=== PATIENT | female | born 1980 | race Caucasian/White ===

== ENCOUNTER 2017-10-27 20:23 | Inpatient (IN) | payer MEDICAID, OTHER ==
--- NOTE | 2017-10-27 20:50 | ED ---
General Adult HPI - General Chief complaint: Psychiatric Symptoms Stated complaint: Mental Health Time Seen by Provider: 10/27/17 20:25 Source: patient, RN notes reviewed, old records reviewed Mode of arrival: EMS Limitations: no limitations - History of Present Illness Initial comments: This is a 37-year-old female to the ER for evaluation. Patient's coming in for psychiatric evaluation per patient brought in by EMS. Patient having severe severe severe stress secondary home situation, patient is unreconcilable, crying - Related Data Home Medications Medication Instructions Recorded Confirmed HYDROcodone/APAP 5-325MG [[place] 1 tab PO Q6HR 10/27/17 10/27/17 5-325] Venlafaxine HCl [Effexor XR] 75 mg PO DAILY 10/27/17 10/27/17 Venlafaxine HCl [Effexor XR] 150 mg PO DAILY 10/27/17 10/27/17 clonazePAM [KlonoPIN] 1 mg PO TID PRN 10/27/17 10/27/17 lamoTRIgine [LaMICtal] 100 mg PO DAILY 10/27/17 10/27/17 Allergies Allergy/AdvReac Type Severity Reaction Status Date / Time No Known Allergies Allergy Verified 10/27/17 20:55 Review of Systems ROS Statement: Those systems with pertinent positive or pertinent negative responses have been documented in the HPI. ROS Other: All systems not noted in ROS Statement are negative. Past Medical History Past Medical History: Musculoskeletal Disorder, Osteoarthritis (OA) Additional Past Medical History / Comment(s): depression, anxiety History of Any Multi-Drug Resistant Organisms: None Reported Past Surgical History: Section Past Anesthesia/Blood Transfusion Reactions: No Reported Reaction Past Psychological History: Anxiety, Depression Smoking Status: Current every day smoker Past Alcohol Use History: Occasional Past Drug Use History: Prescription Drug Abuse General Exam Limitations: no limitations General appearance: alert, in no apparent distress, anxious Head exam: Present: atraumatic, normocephalic, normal inspection Eye exam: Present: normal appearance, PERRL, EOMI. Absent: scleral icterus, conjunctival injection, periorbital swelling ENT exam: Present: normal exam, mucous membranes moist Neck exam: Present: normal inspection. Absent: tenderness, meningismus, lymphadenopathy Respiratory exam: Present: normal lung sounds bilaterally. Absent: respiratory distress, wheezes, rales, rhonchi, stridor Cardiovascular Exam: Present: regular rate, normal rhythm, normal heart sounds. Absent: systolic murmur, diastolic murmur, rubs, gallop, clicks GI/Abdominal exam: Present: soft, normal bowel sounds. Absent: distended, tenderness, guarding, rebound, rigid Extremities exam: Present: normal inspection, full ROM, normal capillary refill. Absent: tenderness, pedal edema, joint swelling, calf tenderness Back exam: Present: normal inspection Neurological exam: Present: alert, oriented X3, CN II-XII intact Psychiatric exam: Present: normal affect, normal mood Skin exam: Present: warm, dry, intact, normal color. Absent: rash Course Vital Signs 10/27/17 20:28 Temperature 98.4 F Pulse Rate 100 Respiratory 20 Rate Blood Pressure 117/68 O2 Sat by Pulse 97 Oximetry - Reevaluation(s) Reevaluation #1: 10/27/17 20:50 Medically clear for psychiatric evaluation Medical Decision Making - Medical Decision Making 37 female to be admitted for psychiatric evaluation and treatment - Lab Data Lab Results 10/27/17 Range/Units 22:00 Urine Opiates Screen Detected H (NotDetected) Ur Oxycodone Screen Not Detected (NotDetected) Urine Methadone Screen Not Detected (NotDetected) Ur Propoxyphene Screen Detected H (NotDetected) Ur Barbiturates Screen Not Detected (NotDetected) U Tricyclic Antidepress Not Detected (NotDetected) Ur Phencyclidine Scrn Not Detected (NotDetected) Ur Amphetamines Screen Not Detected (NotDetected) U Methamphetamines Scrn Not Detected (NotDetected) U Benzodiazepines Scrn Detected H (NotDetected) Urine Cocaine Screen Not Detected (NotDetected) U Marijuana (THC) Screen Not Detected (NotDetected) Disposition Clinical Impression: Depression, Acute anxiety, Suicidal ideation Disposition: TRANSFER TO PSYCH HOSP/UNIT Condition: Good
[2017-10-27] MEDS ORDERED: LORazepam 1 MG TAB PO STA (21:08)
[2017-10-27] MEDS ORDERED: HYDROcodone/APAP 5-325MG 1 EACH TAB PO STA (21:08)
[2017-10-27 22:51] LABS: Amphetamine Screen,Urine Not Detected (NotDetected); Barbiturate Screen,Urine Not Detected (NotDetected); Benzodiazepines Screen,Urine Detected (NotDetected); Cocaine Screen,Urine Not Detected (NotDetected); Methadone Screen, Urine Not Detected (NotDetected); Opiate Screen,Urine Detected (NotDetected); Oxycodone Screen, Urine Not Detected (NotDetected); Phencyclidine Screen,Urine Not Detected (NotDetected); Tricyclic Antidepressant,Urine Not Detected (NotDetected); Urn Cannabinoid Scrn Not Detected (NotDetected)
[2017-10-27] MEDS ORDERED: MAGNESIUM HYDROXIDE 2,400 MG/10 ML CUP PO PRN (23:42)
[2017-10-27] MEDS ORDERED: MAG HYDROX/AL HYDROX/SIMETH 30 ML CUP PO PRN (23:42)
[2017-10-27] MEDS ORDERED: ACETAMINOPHEN TAB 325 MG TAB PO PRN (23:42)
[2017-10-27] MEDS ORDERED: NAPROXEN 250 MG TAB PO PRN (23:47)
[2017-10-28 00:11] LABS: Appearance,Urine Cloudy (Clear); Bacteria,Urine Occasional /hpf; Bilirubin,Urine Negative (Negative); Blood,Urine Negative (Negative); Color,Urine Yellow; Glucose,Urine (UA) Negative (Negative); Ketones,Urine Negative (Negative); Leukocyte Esterase,Urine Moderate (Negative); Mucus,Urine Occasional /hpf; Nitrite,Urine Negative (Negative); PH, Urine 5.5 (5.0-8.0); Protein,Urine 1+ (Negative); RBC,Urine 6 /hpf (0-5); Specific Gravity,Urine 1.027 (1.001-1.035); Squamous Epithelial Cell,Urine 39 /hpf (0-4); Urobilinogen,Urine <2.0 mg/dL (<2.0); WBC,Urine 24 /hpf (0-5)
[2017-10-28 08:54] LABS: ALT 24 U/L (9-52); AST 19 U/L (14-36); Albumin 4.3 g/dL (3.5-5.0); Alkaline Phosphatase 49 U/L (38-126); Anion Gap 0 mmol/L; Blood Urea Nitrogen 17 mg/dL (7-17); Calcium 9.3 mg/dL (8.4-10.2); Carbon Dioxide 28 mmol/L (22-30); Chloride 115 mmol/L (98-107); Cholesterol 165 mg/dL (<200); Glucose 106 mg/dL (74-99); HDL Cholesterol 61 mg/dL (40-60); LDL Cholesterol,Calculated 73 mg/dL (0-99); Potassium 4.2 mmol/L (3.5-5.1); Sodium 143 mmol/L (137-145); Total Bilirubin 0.4 mg/dL (0.2-1.3); Total Protein 6.8 g/dL (6.3-8.2); Triglycerides 156 mg/dL (<150)
[2017-10-28 09:29] LABS: Basophils # (A) 0.1 k/uL (0-0.2); Basophils % (A) 1 %; Eosinophils # (A) 0.3 k/uL (0-0.7); Eosinophils % (A) 3 %; HCT 40.5 % (34.0-46.0); HGB 13.1 gm/dL (11.4-16.0); Lymphocytes # (A) 2.7 k/uL (1.0-4.8); Lymphocytes % (A) 31 %; MCH 30.9 pg (25.0-35.0); MCHC 32.5 g/dL (31.0-37.0); Mean Platelet Volume 6.9; Monocytes # (A) 0.5 k/uL (0-1.0); Monocytes % (A) 5 %; Neutrophils # (A) 5.2 k/uL (1.3-7.7); Neutrophils % (A) 59 %; Platelet Count 335 k/uL (150-450); RBC 4.26 m/uL (3.80-5.40); RDW 12.7 % (11.5-15.5); WBC 8.7 k/uL (3.8-10.6)
[2017-10-28] MEDS: NICOTINE 14MG/24HR PATCH TRANSDERM SCH ×2 (09:45→09:56)
[2017-10-28] MEDS ORDERED: ZOLPIDEM 10 MG TAB PO PRN (09:50)
[2017-10-28] MEDS: lamoTRIgine 100 MG TAB PO SCH ×2 (09:58→20:15)
[2017-10-28] MEDS: clonazePAM 1 MG TAB PO PRN ×2 (09:58→18:52)
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
--- NOTE | 2017-10-28 11:58 | P.HPMEDMHU ---
History of Present Illness H&P Date: 10/28/17 Chief Complaint: suicidal/adjustment disorder 37 y/o female that is undergoing custody issues with her ex. She is very stressed out because she cannot see her son.She feels like she should . Review of Systems no chest pain, no palpitations, ne fever all 10 systems reviewed and were negative except what was mentioned in hpi. Past Medical History Past Medical History: Musculoskeletal Disorder, Osteoarthritis (OA) Additional Past Medical History / Comment(s): depression, anxiety History of Any Multi-Drug Resistant Organisms: None Reported Past Surgical History: Section Past Anesthesia/Blood Transfusion Reactions: No Reported Reaction Past Psychological History: Anxiety, Depression Smoking Status: Current every day smoker Past Alcohol Use History: Occasional Past Drug Use History: Prescription Drug Abuse Medications and Allergies Home Medications Medication Instructions Recorded Confirmed Type HYDROcodone/APAP 5-325MG [[place] 1 tab PO Q6HR 10/27/17 10/27/17 History 5-325] Venlafaxine HCl [Effexor XR] 75 mg PO DAILY 10/27/17 10/27/17 History Venlafaxine HCl [Effexor XR] 150 mg PO DAILY 10/27/17 10/27/17 History clonazePAM [KlonoPIN] 1 mg PO TID PRN 10/27/17 10/27/17 History lamoTRIgine [LaMICtal] 100 mg PO DAILY 10/27/17 10/27/17 History Allergies Allergy/AdvReac Type Severity Reaction Status Date / Time No Known Allergies Allergy Verified 10/28/17 00:25 Physical Exam Vitals: Vital Signs Temp Pulse Pulse Resp BP BP Pulse Ox 10/28/17 10:02 80 16 129/67 10/28/17 00:36 98.8 F 88 18 106/70 10/27/17 20:28 98.4 F 100 20 117/68 97 Intake and Output 10/27/17 10/28/17 10/28/17 22:59 06:59 14:59 Other: Weight 77.111 kg 74.298 kg - Constitutional General appearance: no acute distress - EENT Eyes: EOMI, PERRLA Ears: bilateral: normal - Neck Neck: no lymphadenopathy, no rigidity Thyroid: bilateral: normal size - Respiratory Respiratory: bilateral: CTA, negative: dullness, rales, rhonchi - Cardiovascular Rhythm: regular Heart sounds: normal: S1, S2 - Gastrointestinal General gastrointestinal: normal bowel sounds, soft, no tenderness - Integumentary Integumentary: normal turgor, no rash - Neurologic Neurologic: CNII-XII intact - Musculoskeletal Musculoskeletal: gait normal - Psychiatric Psychiatric: A&O x's 3, appropriate affect Cranial Nerve Examination - Cranial Nerves Cranial Nerve II- Optic: Intact Cranial Nerve III- Oculomotor: Intact Cranial Nerve IV- Trochlear: Intact Cranial Nerve V- Trigeminal: Intact Cranial Nerve - Abducens: Intact Cranial Nerve VII- Facial: Intact Cranial Nerve VIII- Auditory: Intact Cranial Nerve IX- Glossopharyngeal: Intact Cranial Nerve X- Vagus: Intact Cranial Nerve XI- Accessory: Intact Cranial Nerve XII- Hypoglossal: Intact Results CBC & Chem 7: 10/28/17 08:24 10/28/17 08:24 Labs: Abnormal Lab Results - Last 24 Hours (Table) 10/27/17 10/27/17 10/28/17 Range/Units 22:00 22:00 08:24 Chloride 115 H (98-107) mmol/L Glucose 106 H (74-99) mg/dL Triglycerides 156 H (<150) mg/dL HDL Cholesterol 61 H (40-60) mg/dL Urine Appearance Cloudy H (Clear) Urine Protein 1+ H (Negative) Ur Leukocyte Esterase Moderate H (Negative) Urine RBC 6 H (0-5) /hpf Urine WBC 24 H (0-5) /hpf Ur Squamous Epith Cells 39 H (0-4) /hpf Urine Bacteria Occasional H (None) /hpf Urine Mucus Occasional H (None) /hpf Urine Opiates Screen Detected H (NotDetected) Ur Propoxyphene Screen Detected H (NotDetected) U Benzodiazepines Scrn Detected H (NotDetected) Assessment and Plan (1) Suicidal ideation Current Visit: Yes Status: Acute Code(s): R45.851 - SUICIDAL IDEATIONS SNOMED Code(s): 4541544 (2) Acute anxiety Current Visit: Yes Status: Acute Code(s): F41.9 - ANXIETY DISORDER, UNSPECIFIED SNOMED Code(s): 22051031 (3) UTI (urinary tract infection) Narrative/Plan: cipro for 3 days Current Visit: Yes Status: Acute Priority: High Code(s): N39.0 - URINARY TRACT INFECTION, SITE NOT SPECIFIED SNOMED Code(s): 82330486
[2017-10-28] MEDS: CIPROFLOXACIN HCL 500 MG TAB PO SCH ×2 (12:27→20:15)
[2017-10-28 18:35] LABS: Hemoglobin A1C 4.8 % (4.0-6.0)
[2017-10-28] MEDS: NAPROXEN 250 MG TAB PO SCH (20:15)
[2017-10-29] MEDS: NAPROXEN 250 MG TAB PO SCH ×2 (08:35→20:13)
[2017-10-29] MEDS: NICOTINE 14MG/24HR PATCH TRANSDERM SCH (08:36)
[2017-10-29] MEDS: clonazePAM 1 MG TAB PO PRN ×2 (08:36→15:41)
[2017-10-29] MEDS: CIPROFLOXACIN HCL 500 MG TAB PO SCH ×2 (08:36→20:15)
[2017-10-29] MEDS: lamoTRIgine 100 MG TAB PO SCH ×2 (08:36→20:14)
--- NOTE | 2017-10-29 14:56 | P.PN ---
Progress Note - Text Progress Note Date: 10/29/17 Patient was seen for routine follow-up examination. She got up and walked to the office without any difficulty when I called her name. She did not have to hold the hernandez and did not get wobbly. She also feels better. She said she did not sleep well last night and woke up early. She was advised and agreed to try Restoril instead of Ambien for sleep. She does not have any adverse effects from her medication. This is a white ambulatory female with adequate hygiene. She is friendly cheerful and cooperative. She is fully alert. Her speech is spontaneous relevant and goal-directed. Her mood is cheerful and affect is appropriate. She denies suicidal and homicidal ideas. She also denies hallucinations and delusional thinking. She is well oriented with adequate memory concentration general fund of knowledge etc. Plan: Continue her current medication change Ambien to Restoril when necessary, continue groups and other activities.
[2017-10-29 19:49] VITALS: BMI 32.2
[2017-10-29] MEDS ORDERED: TEMAZEPAM 30 MG CAP PO PRN (21:00)
[2017-10-30 06:41] VITALS: RESP 14
[2017-10-30] MEDS: NICOTINE 14MG/24HR PATCH TRANSDERM SCH (07:56)
[2017-10-30] MEDS: clonazePAM 1 MG TAB PO PRN ×2 (07:56→14:51)
[2017-10-30] MEDS: NAPROXEN 250 MG TAB PO SCH ×2 (07:57→20:12)
[2017-10-30] MEDS: lamoTRIgine 100 MG TAB PO SCH ×2 (07:58→20:12)
[2017-10-30] MEDS: CIPROFLOXACIN HCL 500 MG TAB PO SCH ×2 (07:58→20:12)
--- NOTE | 2017-10-30 11:32 | P.PN ---
Progress Note - Text Progress Note Date: 10/30/17 Interval History: Patient is a 37-year-old female who was seen this morning and states that she did not sleep at all last evening and is extremely tired. She states at home when on the Effexor she felt that it made her more irritable and she been started on Klonopin 6 months ago for her anxiety complaints. She reports that she had an increased heart rate was pacing and crying for no reason patient was taking 3 of these a day or more. She states that this was concurrent with her taking the Effexor. Patient states that she is no longer feeling suicidal but was very tired this morning and is not feeling depressed. Patient reported that she has been taking the Klonopin just twice a day here in the hospital. Mental Status: Appearance/Attitude: Patient is appropriately dressed, makes good eye contact and is cooperative. Behavior: Patient does not exhibit any psychomotor agitation or retardation. Speech/Language: Patient's speech is spontaneous and of normal volume and rhythm and she is coherent Thought Process: Patient is goal-directed there is no evidence of circumstantial or tangential thought and no loose association or flight of ideas Thought Content: Patient denies any auditory or visual hallucinations and no delusions or paranoid ideation were elicited. Patient states that she did not sleep at all last evening with the Restoril and had not slept the night prior with Ambien. Patient states that she is not feeling depressed currently. She states that she is not having any anxiety and no side effects from the increase in the Lamictal. Suicidal/Homicidal Ideation: She denies any current suicidal or homicidal ideation. Sensorium/Cognition: Patient is alert and oriented to person, place, and time and her recent and remote memory are grossly intact. Mood/Affect: Patient's mood is pleasant and her affect is appropriate Insight/Judgment: Patient's insight and judgment are fair Assessment: Patient and I discussed her diagnoses the patient endorses symptoms of bipolar type II disorder. She is not able to endorse manic symptoms. She reports that she has not been sleeping well and did not sleep at all last evening. She states at home she was taking the Klonopin to assist with her sleep. She states the Effexor and made her more irritable and anxious at home. Patient has been on the Klonopin for the last 6 months. Patient reports that she is not feeling depressed or suicidal at this time. Plan: Patient will continue on Lamictal 100 mg twice a day, we'll decrease her Klonopin to 1 mg twice a day when necessary for anxiety and I discussed with the patient continuing to try to decrease her dose of this. Patient will start melatonin 3 mg at bedtime to assist with her sleep and will discontinue Restoril. At this time we'll not begin any antidepressants as the patient reports that they have made her more anxious and irritable in the past and have not been beneficial to her. Patient and I discussed discharge tomorrow when she was agreeable with this plan. Patient will follow-up with a psychiatric clinic versus seeing her primary care physician. She and I also discussed continuing to slowly decrease her use of Klonopin once she is discharged.
[2017-10-30] MEDS ORDERED: MELATONIN 3 MG TABLET PO SCH (21:00)
[2017-10-31 06:49] VITALS: BP 104/53; PULSE 63; TEMP 97.8
[2017-10-31] MEDS: NAPROXEN 250 MG TAB PO SCH (08:33)
[2017-10-31] MEDS: lamoTRIgine 100 MG TAB PO SCH (08:35)
[2017-10-31] MEDS: clonazePAM 1 MG TAB PO PRN (08:37)
--- NOTE | 2017-10-31 10:26 | P.DS ---
Providers Date of admission: 10/27/17 23:19 Expected date of discharge: 10/31/17 Attending physician: Mell Templeton MD Consults: 10/27/17 23:42 Consult Physician Routine Consulting Provider: Vicki Turk Consult Reason/Comments: H&P for mental health admission Do you want consulting provider notified?: Yes Primary care physician: Yuan Lopez Hospital Course: Discharge Diagnosis: Bipolar type II disorder, current episode depressed;opiate use disorder, mild; benzodiazipine disorder, mild Reason for Admission: Patient is a 37 years old female. She was admitted to [facility] on 10/27/2017 under a petition stating that she is having severe stress secondary to home situation is unreconcilable and needs a psychiatric evaluation. When she was asked for the reasons for coming to hospital she said she is having custody issues with her ex boyfriend and it has been very stressful, feels like she should . Apparently her ex-boyfriend has the custody of her 5-1/2-year-old son but he lives with his grandparents. Apparently her ex-boyfriends refuses let her talk to him, she cannot see her son and is "stressed out". She also said she gets panic attacks collapses and her parents called EMS because of melt down. She said she has been having suicidal thoughts since age 16 and she used to cut herself. She said her suicidal thoughts are worse for the last 5 years. She still cuts herself when she feels bad and the last cutting was last year. She said she gets panic attacks since age 21 on a daily basis lasting for 2 hours. Mostly these panic attacks happen when she starts to worry about something and sometimes they happen spontaneously. The symptoms of panic attacks include shaking not able to sleep well, shortness of breath and crying a lot. She also stares at the wall when these panic attacks stop. She said she is diagnosed with bipolar disorder. Her manic episodes last for about 2 days during which time she pulls her hair out, punches the wall or hurts herself. She said her depression last 4 weeks during which time she cries does not want to move. She denies hallucinations and delusional thinking. She said she has been very emotional all her life, her feelings get hurt easily and when she feels bad she cuts herself or gets self abusive. Patient reports that she was overusing her klonopin at home, she denied using opiates but her UDS was positive for opiates. Patient was being treated by her family physician with Lamictal and Effexor, patient states that the Effexor made her more agitated and irritable and did not address her depressive symptoms. Hospital Course: Patient was admitted on a voluntary basis, placed on routine observation and group and activity therapy were ordered. Patient was also ordered routine laboratory studies as well as a medical consultation. Patient was not continued on Effexor due to her reports of agitation and irritability, her Lamictal was increased to 100 mg twice a day. Patient had also been given Ambien and Restoril for sleep both of which she stated made her sleep worse and were discontinued. Patient was given melatonin 3 mg at bedtime to address her sleep issues with good results. Patient's Klonopin was also decreased to 1 mg twice a day as the patient states that that is all she had been taking at home. Patient was attending groups and activities. Patient reported that her mood had stabilized on the increased dose of Lamictal and the discontinuation of Effexor. Patient reported that she was not feeling anxious in the hospital, no longer feeling stressed out or depressed and had no further suicidal ideation. Patient slept for 5 hours the night prior to discharge and was feeling rested. She stated that she was ready to return home and had no side effects from her medications. Allergies No Known Allergies Allergy (Verified 10/29/17 19:57) Laboratory Last Values WBC 8.7 k/uL (3.8-10.6) 10/28/17 08:24 RBC 4.26 m/uL (3.80-5.40) 10/28/17 08:24 Hgb 13.1 gm/dL (11.4-16.0) 10/28/17 08:24 Hct 40.5 % (34.0-46.0) 10/28/17 08:24 MCV 95.0 fL (80.0-100.0) 10/28/17 08:24 MCH 30.9 pg (25.0-35.0) 10/28/17 08:24 MCHC 32.5 g/dL (31.0-37.0) 10/28/17 08:24 RDW 12.7 % (11.5-15.5) 10/28/17 08:24 Plt Count 335 k/uL (150-450) 10/28/17 08:24 Neutrophils % 59 % 10/28/17 08:24 Lymphocytes % 31 % 10/28/17 08:24 Monocytes % 5 % 10/28/17 08:24 Eosinophils % 3 % 10/28/17 08:24 Basophils % 1 % 10/28/17 08:24 Neutrophils # 5.2 k/uL (1.3-7.7) 10/28/17 08:24 Lymphocytes # 2.7 k/uL (1.0-4.8) 10/28/17 08:24 Monocytes # 0.5 k/uL (0-1.0) 10/28/17 08:24 Eosinophils # 0.3 k/uL (0-0.7) 10/28/17 08:24 Basophils # 0.1 k/uL (0-0.2) 10/28/17 08:24 Sodium 143 mmol/L (137-145) 10/28/17 08:24 Potassium 4.2 mmol/L (3.5-5.1) 10/28/17 08:24 Chloride 115 mmol/L (98-107) H 10/28/17 08:24 Carbon Dioxide 28 mmol/L (22-30) 10/28/17 08:24 Anion Gap 0 mmol/L 10/28/17 08:24 BUN 17 mg/dL (7-17) 10/28/17 08:24 Creatinine 0.86 mg/dL (0.52-1.04) 10/28/17 08:24 Est GFR (CKD-EPI)AfAm >90 (>60 ml/min/1.73 sqM) 10/28/17 08:24 Est GFR (CKD-EPI)NonAf 89 (>60 ml/min/1.73 sqM) 10/28/17 08:24 Glucose 106 mg/dL (74-99) H 10/28/17 08:[address] Glu mg/dL 91 10/28/17 08:24 Hemoglobin A1c 4.8 % (4.0-6.0) 10/28/17 08:24 Calcium 9.3 mg/dL (8.4-10.2) 10/28/17 08:24 Total Bilirubin 0.4 mg/dL (0.2-1.3) 10/28/17 08:24 AST 19 U/L (14-36) 10/28/17 08:24 ALT 24 U/L (9-52) 10/28/17 08:24 Alkaline Phosphatase 49 U/L (38-126) 10/28/17 08:24 Total Protein 6.8 g/dL (6.3-8.2) 10/28/17 08:24 Albumin 4.3 g/dL (3.5-5.0) 10/28/17 08:24 Triglycerides 156 mg/dL (<150) H 10/28/17 08:24 Cholesterol 165 mg/dL (<200) 10/28/17 08:24 LDL Cholesterol, Calc 73 mg/dL (0-99) 10/28/17 08:24 HDL Cholesterol 61 mg/dL (40-60) H 10/28/17 08:24 TSH 2.480 mIU/L (0.465-4.680) 10/28/17 08:24 Urine Color Yellow 10/27/17 22:00 Urine Appearance Cloudy (Clear) H 10/27/17 22:00 Urine pH 5.5 (5.0-8.0) 10/27/17 22:00 Ur Specific [place] 1.027 (1.001-1.035) 10/27/17 22:00 Urine Protein 1+ (Negative) H 10/27/17 22:00 Urine Glucose (UA) Negative (Negative) 10/27/17 22:00 Urine Ketones Negative (Negative) 10/27/17 22:00 Urine Blood Negative (Negative) 10/27/17 22:00 Urine Nitrite Negative (Negative) 10/27/17 22:00 Urine Bilirubin Negative (Negative) 10/27/17 22:00 Urine Urobilinogen <2.0 mg/dL (<2.0) 10/27/17 22:00 Ur Leukocyte Esterase Moderate (Negative) H 10/27/17 22:00 Urine RBC 6 /hpf (0-5) H 10/27/17 22:00 Urine WBC 24 /hpf (0-5) H 10/27/17 22:00 Ur Squamous Epith Cells 39 /hpf (0-4) H 10/27/17 22:00 Urine Bacteria Occasional /hpf (None) H 10/27/17 22:00 Urine Mucus Occasional /hpf (None) H 10/27/17 22:00 Urine HCG, Qual Not Detected (Not Detectd) 10/27/17 22:00 Urine Opiates Screen Detected (NotDetected) H 10/27/17 22:00 Ur Oxycodone Screen Not Detected (NotDetected) 10/27/17 22:00 Urine Methadone Screen Not Detected (NotDetected) 10/27/17 22:00 Ur Propoxyphene Screen Detected (NotDetected) H 10/27/17 22:00 Ur Barbiturates Screen Not Detected (NotDetected) 10/27/17 22:00 U Tricyclic Antidepress Not Detected (NotDetected) 10/27/17 22:00 Ur Phencyclidine Scrn Not Detected (NotDetected) 10/27/17 22:00 Ur Amphetamines Screen Not Detected (NotDetected) 10/27/17 22:00 U Methamphetamines Scrn Not Detected (NotDetected) 10/27/17 22:00 U Benzodiazepines Scrn Detected (NotDetected) H 10/27/17 22:00 Urine Cocaine Screen Not Detected (NotDetected) 10/27/17 22:00 U Marijuana (THC) Screen Not Detected (NotDetected) 10/27/17 22:00 Discharge Mental Status: Appearance/Attitude: Patient was appropriately dressed , made good eye contact and was cooperative. Behavior: Patient did not display any psychomotor agitation or retardation. Speech/Language: Patient's speech was spontaneous of normal volume and rhythm and she was coherent Thought Process: Patient was goal-directed there is no evidence of circumstantial or tangential thought and no loose associations or flight of ideas. Thought Content: Patient denied any auditory or visual hallucinations and no delusions or paranoid ideation were elicited. Patient states that she had slept well last night and felt rested. She reported that she was no longer feeling stressed out, had not had any episodes of anxiety while in the hospital and felt better able to cope. Patient reported that her appetite was good. Suicidal/Homicidal Ideation: Patient denied any current suicidal or homicidal ideation. Sensorium/Cognition: Patient was alert and oriented to person, place, and time and her recent and remote memory were grossly intact. Patient states that she was able to focus and concentrate Mood/Affect: Patient's mood was stable, pleasant and her affect was appropriate Insight/Judgment: Patient's insight and judgment are fair. Risk Assessment: Patient's risk is low for self harm, should patient continue on medication and outpatient treatment Discharge Plan: Patient will return to live with her stepfather and mother, she will continue on Lamictal 100 mg twice a day, melatonin 3 mg a day and her Klonopin will be decreased to 0.5 mg in the morning and 1 mg at night for 2 weeks and then decreased further to 0.5 mg twice a day and we discussed continuing to decrease her Klonopin and discontinue it. I recommended to the patient that she avoid restarting any opiate pain medication. Patient will be given prescriptions for these medications and will follow up with [facility]. Patient was encouraged to avoid any alcohol or drugs and be compliant with her APPOINTMENTS at [facility] medication. Patient Condition at Discharge: Stable Plan - Discharge Summary Discharge Rx Participant: No New Discharge Prescriptions: New clonazePAM [KlonoPIN] 1 mg PO BID #35 tab lamoTRIgine [LaMICtal] 100 mg PO BID #28 tab Melatonin 3 mg PO HS #28 tablet Naproxen [Naprosyn] 250 mg PO BID tab Discontinued clonazePAM [KlonoPIN] 1 mg PO TID PRN PRN Reason: Anxiety Venlafaxine HCl [Effexor XR] 150 mg PO DAILY lamoTRIgine [LaMICtal] 100 mg PO DAILY HYDROcodone/APAP 5-325MG [[place] 5-325] 1 tab PO Q6HR Venlafaxine HCl [Effexor XR] 75 mg PO DAILY Discharge Medication List Melatonin 3 mg PO HS #28 tablet 10/31/17 [Rx] Naproxen [Naprosyn] 250 mg PO BID tab 10/31/17 [Rx] clonazePAM [KlonoPIN] 1 mg PO BID #35 tab 10/31/17 [Rx] lamoTRIgine [LaMICtal] 100 mg PO BID #28 tab 10/31/17 [Rx] Follow up Appointment(s)/Referral(s): Yuan Lopez MD [Primary Care Provider] - 1-2 days [facility] [Outside] - 1 Week (Please complete walk-in intake within 48 hours of hospital discharge Hours: - 1030-5 Wed, - 830-3) Activity/Diet/Wound Care/Special Instructions: Activity and diet as tolerated. Avoid the use of street drugs and alcohol. Remove all firearms from the home. Take all medications as prescribed. Follow up with you Primary Care provider in 1-2 days. When you are in need of refills on your medications please contact your medical provider and/or outpatient psychiatrist to have this done. Please go to scheduled outpatient appointment for aftercare. If symptoms return or become worse call the crisis line at [phone] and/or go to the nearest emergency room for an evaluation. Discharge Disposition: HOME SELF-CARE
== END 2017-10-31 13:53 | disposition home or self-care (01) | DRG 885 ==
LOC: EC 20:23 → 3MHU 23:19
PROVIDERS: ADMIT Psychiatry & Neurology Psychiatry; ATTEND Psychiatry & Neurology Psychiatry
DX: F31.81 Bipolar II disorder (principal); F11.20 Opioid dependence, uncomplicated; F13.20 Sedative, hypnotic or anxiolytic dependence, uncomplicated; N39.0 Urinary tract infection, site not specified; F17.200 Nicotine dependence, unspecified, uncomplicated; F41.0 Panic disorder [episodic paroxysmal anxiety]; F43.20 Adjustment disorder, unspecified; F60.3 Borderline personality disorder; G89.29 Other chronic pain; M46.90 Unspecified inflammatory spondylopathy, site unspecified; M54.30 Sciatica, unspecified side; Z81.8 Family history of other mental and behavioral disorders; Z82.49 Family history of ischemic heart disease and other diseases of the circulatory system; Z82.5 Family history of asthma and other chronic lower respiratory diseases; Z91.5 Personal history of self-harm; F10.20 Alcohol dependence, uncomplicated
CPT/HCPCS: 80053; 80061; 80306; 81001; 81025; 82075; 83036; 84443; 85025; 99285

== ENCOUNTER 2017-12-13 15:26 | Inpatient (IN) | payer MEDICAID, OTHER ==
--- NOTE | 2017-12-13 16:03 | ED ---
General Adult HPI - General Chief complaint: Psychiatric Symptoms Stated complaint: Mental Health Time Seen by Provider: 12/13/17 15:41 Source: patient, RN notes reviewed Mode of arrival: ambulatory Limitations: no limitations - History of Present Illness Initial comments: Patient 37-year-old female presented to the emergency room today with a chief complaint of suicidal thoughts. She does not give any specific example of how she would hurt herself but says she's had increased thoughts of self over the last several years. States she does not see any therapist or counselor currently. Patient denies any homicidal thoughts or plans. Denies any other complaints. Patient denies any recent fever, chills, shortness of breath, chest pain, back pain, abdominal pain, nausea or vomiting, numbness or tingling, headaches or visual changes, or any other complaints. - Related Data Home Medications Medication Instructions Recorded Confirmed Venlafaxine HCl [Effexor XR] 75 mg PO DAILY 12/13/17 12/13/17 Venlafaxine HCl [Effexor XR] 150 mg PO DAILY 12/13/17 12/13/17 clonazePAM [KlonoPIN] 1 mg PO DAILY PRN 12/13/17 12/13/17 Previous Rx's Medication Instructions Recorded lamoTRIgine [LaMICtal] 100 mg PO BID #28 tab 10/31/17 Allergies Allergy/AdvReac Type Severity Reaction Status Date / Time No Known Allergies Allergy Verified 12/13/17 15:52 Review of Systems ROS Statement: Those systems with pertinent positive or pertinent negative responses have been documented in the HPI. ROS Other: All systems not noted in ROS Statement are negative. Past Medical History Past Medical History: Musculoskeletal Disorder, Osteoarthritis (OA) Additional Past Medical History / Comment(s): depression, anxiety, Pt states that she has had a seizure twice in the past when abusing different substances like cough sryup. History of Any Multi-Drug Resistant Organisms: None Reported Past Surgical History: Section Past Anesthesia/Blood Transfusion Reactions: No Reported Reaction Past Psychological History: Anxiety, Depression Smoking Status: Current every day smoker Past Alcohol Use History: Occasional Past Drug Use History: Marijuana, Prescription Drug Abuse - Past Family History Father Family Medical History: Myocardial Infarction ([place]) Additional Family Medical History / Comment(s): Alcoholism Mother Family Medical History: Deep Vein Thrombosis (DVT), Pneumonia, Respiratory Disorder Additional Family Medical History / Comment(s): Alcoholism Son(s) Family Medical History: No Reported History General Exam - General Exam Comments Initial Comments: General: The patient is awake and alert, in no distress, and does not appear acutely ill. Eye: Pupils are equal, round and reactive to light, extra-ocular movements are intact. No nystagmus. There is normal conjunctiva bilaterally. No signs of icterus. Ears, nose, mouth and throat: There are moist mucous membranes and no oral lesions. Neck: The neck is supple, there is no tenderness or JVD. Cardiovascular: There is a regular rate and rhythm. No murmur, rub or gallop is appreciated. Respiratory: Lungs are clear to auscultation, respirations are non-labored, breath sounds are equal. No wheezes, stridor, rales, or rhonchi. Musculoskeletal: Normal ROM, no tenderness. Strength 5/5. Sensation intact. Pulses equal bilaterally 2+. Neurological: A&O x 3. CN II-XII intact, There are no obvious motor or sensory deficits. Coordination appears grossly intact. Speech is normal. Skin: Skin is warm and dry and no rashes or lesions are noted. Psychiatric: Cooperative. Limitations: no limitations Course Vital Signs 12/13/17 15:35 Temperature 99.0 F Pulse Rate 89 Respiratory 18 Rate Blood Pressure 125/78 O2 Sat by Pulse 98 Oximetry Medical Decision Making - Medical Decision Making Patient seen by mental health here in the emergency room and they recommended admission to the hospital. - Lab Data Lab Results 12/13/17 Range/Units 16:40 Urine Opiates Screen Detected H (NotDetected) Ur Oxycodone Screen Not Detected (NotDetected) Urine Methadone Screen Not Detected (NotDetected) Ur Propoxyphene Screen Not Detected (NotDetected) Ur Barbiturates Screen Not Detected (NotDetected) U Tricyclic Antidepress Not Detected (NotDetected) Ur Phencyclidine Scrn Not Detected (NotDetected) Ur Amphetamines Screen Not Detected (NotDetected) U Methamphetamines Scrn Not Detected (NotDetected) U Benzodiazepines Scrn Not Detected (NotDetected) Urine Cocaine Screen Not Detected (NotDetected) U Marijuana (THC) Screen Not Detected (NotDetected) Disposition Clinical Impression: Suicidal ideation Disposition: TRANSFER TO PSYCH HOSP/UNIT Condition: Good Is patient prescribed a controlled substance at d/c from ED?: No Referrals: Yuan Lopez MD [Primary Care Provider] - 1-2 days Time of Disposition: 18:28
[2017-12-13 17:37] LABS: Amphetamine Screen,Urine Not Detected (NotDetected); Barbiturate Screen,Urine Not Detected (NotDetected); Benzodiazepines Screen,Urine Not Detected (NotDetected); Cocaine Screen,Urine Not Detected (NotDetected); Methadone Screen, Urine Not Detected (NotDetected); Opiate Screen,Urine Detected (NotDetected); Oxycodone Screen, Urine Not Detected (NotDetected); Phencyclidine Screen,Urine Not Detected (NotDetected); Tricyclic Antidepressant,Urine Not Detected (NotDetected); Urn Cannabinoid Scrn Not Detected (NotDetected)
[2017-12-13] MEDS ORDERED: MAGNESIUM HYDROXIDE 2,400 MG/10 ML CUP PO PRN (19:48)
[2017-12-13] MEDS ORDERED: MAG HYDROX/AL HYDROX/SIMETH 30 ML CUP PO PRN (19:48)
[2017-12-13] MEDS: LORazepam 0.5 MG TAB PO PRN (20:15)
[2017-12-13] MEDS: lamoTRIgine 100 MG TAB PO SCH (20:16)
--- NOTE | 2017-12-13 21:43 | P.CONS ---
History of Present Illness - Reason for Consult Consult date: 12/13/17 Medical management - History of Present Illness Is a 37 year all the female admitted to the hospital with suicidal thoughts no clubbing of any chest pain or shortness of breath no major medical medical problems Review of systems and systems has been reviewed all negative and positive findings as per HPI Past Medical History: Musculoskeletal Disorder, Osteoarthritis (OA) Additional Past Medical History / Comment(s): depression, anxiety, Pt states that she has had a seizure twice in the past when abusing different substances like cough sryup. History of Any Multi-Drug Resistant Organisms: None Reported Past Surgical History: Section Past Anesthesia/Blood Transfusion Reactions: No Reported Reaction Past Psychological History: Anxiety, Depression Smoking Status: Current every day smoker Past Alcohol Use History: Occasional Past Drug Use History: Marijuana, Prescription Drug Abuse - Past Family History Father Family Medical History: Myocardial Infarction ([place]) Additional Family Medical History / Comment(s): Alcoholism Mother Family Medical History: Deep Vein Thrombosis (DVT), Pneumonia, Respiratory Disorder Additional Family Medical History / Comment(s): Alcoholism Son(s) Family Medical History: No Reported History Vital Signs - 24 hr 12/13/17 12/13/17 12/13/17 15:35 18:50 19:34 Temperature 99.0 F 98.8 F 98.3 F Pulse Rate 89 95 Pulse Rate [ 107 H Right Sitting Brachial] Respiratory 18 18 16 Rate Blood Pressure 125/78 135/72 Blood Pressure 128/84 [Right Arm Sitting] O2 Sat by Pulse 98 95 Oximetry Laboratory Results - last 24 hr 12/13/17 16:40 Urine Opiates Screen Detected H Ur Oxycodone Screen Not Detected Urine Methadone Screen Not Detected Ur Propoxyphene Screen Not Detected Ur Barbiturates Screen Not Detected U Tricyclic Antidepress Not Detected Ur Phencyclidine Scrn Not Detected Ur Amphetamines Screen Not Detected U Methamphetamines Scrn Not Detected U Benzodiazepines Scrn Not Detected Urine Cocaine Screen Not Detected U Marijuana (THC) Screen Not Detected Constitutional: No acute distress, conversant, pleasant Eyes: Anicteric sclerae, moist conjunctiva, no lid-lag PERRLA ENMT: [place]/AT Oropharynx clear, no erythema, exudates Neck: Supple, FROM, no masses, or JVD No carotid bruits No thyromegaly Lungs: Clear to auscultation Clear to percussion Normal respiratory effort, no accessory muscle use Cardiovascular: Heart regular in rate and rhythm, No murmurs, gallops, or rubs No peripheral edema Abdominal: Soft Nontender, Skin: Normal temperature, tone, texture, turgor No induration No subcutaneous nodules No rash, lesions No ulcers Extremities: No digital cyanosis No clubbing Pedal pulses intact and symmetrical Radial pulses intact and symmetrical Normal gait and station No calf tenderness Psychiatric:Alert and oriented to person, place and time Appropriate affect Intact judgement Neuro: No obvious weakness Assessment and plan Depression with suicidal thoughts management as per psychiatry Chronic back pain No major medical problems at this time continue to monitor Past Medical History Past Medical History: Musculoskeletal Disorder, Osteoarthritis (OA) Additional Past Medical History / Comment(s): depression, anxiety, Pt states that she has had a seizure twice in the past when abusing different substances like cough sryup. History of Any Multi-Drug Resistant Organisms: None Reported Past Surgical History: Section Past Anesthesia/Blood Transfusion Reactions: No Reported Reaction Past Psychological History: Anxiety, Depression Additional Psychological History / Comment(s): Borderline Personality Disorder Smoking Status: Current every day smoker Past Alcohol Use History: Occasional Additional Past Alcohol Use History / Comment(s): Patient states that she drank a bottle of wine once in this last two weeks. Past Drug Use History: Marijuana, Prescription Drug Abuse Additional Drug Use History / Comment(s): Patient states that she has tried MJ in the past. Patient has a history of abusing substances like cough sryup. - Past Family History Father Family Medical History: Myocardial Infarction ([place]) Additional Family Medical History / Comment(s): Alcoholism Mother Family Medical History: Deep Vein Thrombosis (DVT), Pneumonia, Respiratory Disorder Additional Family Medical History / Comment(s): Alcoholism Son(s) Family Medical History: No Reported History Medications and Allergies Home Medications Medication Instructions Recorded Confirmed Type lamoTRIgine [LaMICtal] 100 mg PO BID #28 tab 10/31/17 12/13/17 Rx Venlafaxine HCl [Effexor XR] 75 mg PO DAILY 12/13/17 12/13/17 History Venlafaxine HCl [Effexor XR] 150 mg PO DAILY 12/13/17 12/13/17 History clonazePAM [KlonoPIN] 1 mg PO DAILY PRN 05/09/18 05/09/18 History Allergies Allergy/AdvReac Type Severity Reaction Status Date / Time No Known Allergies Allergy Verified 12/13/17 20:37 Physical Exam Vitals: Vital Signs Temp Pulse Pulse Resp BP BP Pulse Ox 12/13/17 19:34 98.3 F 107 H 16 128/84 12/13/17 18:50 98.8 F 95 18 135/72 95 12/13/17 15:35 99.0 F 89 18 125/78 98 Intake and Output 12/13/17 12/13/17 12/13/17 06:59 14:59 22:59 Other: Weight 74.389 kg Results Labs: Abnormal Lab Results - Last 24 Hours (Table) 12/13/17 Range/Units 16:40 Urine Opiates Screen Detected H (NotDetected)
[2017-12-14] MEDS: LORazepam 0.5 MG TAB PO PRN (08:30)
[2017-12-14] MEDS: lamoTRIgine 100 MG TAB PO SCH ×2 (08:30→20:58)
[2017-12-14] MEDS: NICOTINE 14MG/24HR PATCH TRANSDERM SCH (08:31)
[2017-12-14] MEDS ORDERED: VENLAFAXINE HCL ER 75 MG CAP PO SCH (09:00)
[2017-12-14] MEDS ORDERED: VENLAFAXINE HCL ER 150 MG CAP PO SCH (09:00)
[2017-12-14 09:48] LABS: Basophils % (A) 1 %; Eosinophils # (A) 0.1 k/uL (0-0.7); Eosinophils % (A) 2 %; HCT 38.1 % (34.0-46.0); HGB 13.4 gm/dL (11.4-16.0); Lymphocytes # (A) 1.6 k/uL (1.0-4.8); Lymphocytes % (A) 20 %; MCH 32.3 pg (25.0-35.0); MCHC 35.1 g/dL (31.0-37.0); MCV 92.1 fL (80.0-100.0); Mean Platelet Volume 7.1; Monocytes # (A) 0.4 k/uL (0-1.0); Monocytes % (A) 5 %; Neutrophils # (A) 5.9 k/uL (1.3-7.7); Neutrophils % (A) 72 %; Platelet Count 336 k/uL (150-450); RBC 4.14 m/uL (3.80-5.40); RDW 12.8 % (11.5-15.5); WBC 8.3 k/uL (3.8-10.6)
[2017-12-14 10:03] LABS: ALT 25 U/L (9-52); AST 19 U/L (14-36); Albumin 4.4 g/dL (3.5-5.0); Alkaline Phosphatase 53 U/L (38-126); Anion Gap 1 mmol/L; Blood Urea Nitrogen 17 mg/dL (7-17); Calcium 9.8 mg/dL (8.4-10.2); Carbon Dioxide 24 mmol/L (22-30); Chloride 119 mmol/L (98-107); Cholesterol 166 mg/dL (<200); Glucose 101 mg/dL (74-99); HDL Cholesterol 56 mg/dL (40-60); LDL Cholesterol,Calculated 96 mg/dL (0-99); Potassium 4.3 mmol/L (3.5-5.1); Sodium 144 mmol/L (137-145); Total Bilirubin 0.4 mg/dL (0.2-1.3); Total Protein 6.8 g/dL (6.3-8.2); Triglycerides 70 mg/dL (<150)
--- NOTE | 2017-12-14 14:13 | P.HP ---
Psychiatric H&P - . H&P Date: 12/14/17 History & Physical: Allergies Allergy/AdvReac Type Severity Reaction Status Date / Time No Known Allergies Allergy Verified 12/13/17 20:37 Vital Signs Temp 97.8 F 12/14/17 06:16 Pulse 74 12/14/17 06:16 Resp 16 12/14/17 06:16 BP 100/56 12/14/17 06:16 Pulse Ox 95 12/13/17 18:50 Intake & Output 12/13/17 12/14/17 12/14/17 18:59 06:59 18:59 Weight 77.111 kg 74.389 kg Laboratory Last Values WBC 8.3 k/uL (3.8-10.6) 12/14/17 09:31 RBC 4.14 m/uL (3.80-5.40) 12/14/17 09:31 Hgb 13.4 gm/dL (11.4-16.0) 12/14/17 09:31 Hct 38.1 % (34.0-46.0) 12/14/17 09:31 MCV 92.1 fL (80.0-100.0) 12/14/17 09:31 MCH 32.3 pg (25.0-35.0) 12/14/17 09:31 MCHC 35.1 g/dL (31.0-37.0) 12/14/17 09:31 RDW 12.8 % (11.5-15.5) 12/14/17 09:31 Plt Count 336 k/uL (150-450) 12/14/17 09:31 Neutrophils % 72 % 12/14/17 09:31 Lymphocytes % 20 % 12/14/17 09:31 Monocytes % 5 % 12/14/17 09:31 Eosinophils % 2 % 12/14/17 09:31 Basophils % 1 % 12/14/17 09:31 Neutrophils # 5.9 k/uL (1.3-7.7) 12/14/17 09:31 Lymphocytes # 1.6 k/uL (1.0-4.8) 12/14/17 09:31 Monocytes # 0.4 k/uL (0-1.0) 12/14/17 09:31 Eosinophils # 0.1 k/uL (0-0.7) 12/14/17 09:31 Basophils # 0.0 k/uL (0-0.2) 12/14/17 09:31 Sodium 144 mmol/L (137-145) 12/14/17 09: Potassium 4.3 mmol/L (3.5-5.1) 12/14/17 09: Chloride 119 mmol/L (98-107) H 12/14/17 09: Carbon Dioxide 24 mmol/L (22-30) 12/14/17: Anion Gap 1 mmol/L 12/14/17: BUN 17 mg/dL (7-17) 12/14/17: Creatinine 0.73 mg/dL (0.52-1.04) 12/14/17: Est GFR (CKD-EPI)AfAm >90 (>60 ml/min/1.73 sqM) 12/14/17: Est GFR (CKD-EPI)NonAf >90 (>60 ml/min/1.73 sqM) 12/14/17: Glucose 101 mg/dL (74-99) H 12/14/17: Calcium 9.8 mg/dL (8.4-10.2) 12/14/17: Total Bilirubin 0.4 mg/dL (0.2-1.3) 12/14/17: AST 19 U/L (14-36) 12/14/17: ALT 25 U/L (9-52) 12/14/17: Alkaline Phosphatase 53 U/L (38-126) 12/14/17: Total Protein 6.8 g/dL (6.3-8.2) 12/14/17: Albumin 4.4 g/dL (3.5-5.0) 12/14/17: Triglycerides 70 mg/dL (<150) 12/14/17: Cholesterol 166 mg/dL (<200) 12/14/17: LDL Cholesterol, Calc 96 mg/dL (0-99) 12/14/17: HDL Cholesterol 56 mg/dL (40-60) 12/14/17: TSH 0.814 mIU/L (0.465-4.680) 12/14/17:31 Urine HCG, Qual Not Detected (Not Detectd) 12/13/17 16:40 Urine Opiates Screen Detected (NotDetected) H 12/13/17 16:40 Ur Oxycodone Screen Not Detected (NotDetected) 12/13/17 16:40 Urine Methadone Screen Not Detected (NotDetected) 12/13/17 16:40 Ur Propoxyphene Screen Not Detected (NotDetected) 12/13/17 16:40 Ur Barbiturates Screen Not Detected (NotDetected) 12/13/17 16:40 U Tricyclic Antidepress Not Detected (NotDetected) 12/13/17 16:40 Ur Phencyclidine Scrn Not Detected (NotDetected) 12/13/17 16:40 Ur Amphetamines Screen Not Detected (NotDetected) 12/13/17 16:40 U Methamphetamines Scrn Not Detected (NotDetected) 12/13/17 16:40 U Benzodiazepines Scrn Not Detected (NotDetected) 12/13/17 16:40 Urine Cocaine Screen Not Detected (NotDetected) 12/13/17 16:40 U Marijuana (THC) Screen Not Detected (NotDetected) 12/13/17 16:40 12/14/17 13:57 Identification: Patient is a 37-year-old female who presented to the emergency room reporting suicidal ideation. History of Present Illness: Patient had been discharged from the inpatient unit on October 31 and she states that she never followed up with [facility] mental health after discharge but went back to see her primary care physician who restarted her on Effexor to a dose of 225 mg as well as represcribed her Klonopin 1 mg a day. She continued on the Lamictal 100 mg twice a day. Patient states that she had been living with her father and stepmother but that that was an inappropriate living situation for her as her father is an alcohol abuser and her stepmother has bipolar disorder. She states that she went to visit her boyfriend are several days in [place] and returned hearing came to the emergency room. Patient states that she has not taken any Klonopin for the last 2 weeks. Patient states that she's been taking pain medications from her father with tramadol and [place]'s. She also reports using [id number] cough syrup and cough pills that she buys to help "numb" her. Patient states that she has continued to feel depressed, with little interest or energy to do things, continuing to report symptoms of anxiety where she has episodes of hyperventilation, feeling dizzy and she states that she feels like she is losing her mind. Patient states she will also pull out her hair at times. Patient denies any psychotic symptoms currently or in the past. Patient does state that she is suspicious of people and states that she feels she needs to listen to what people tell her to do oral something bad will happen. Patient states that in the past before she began using substances and alcohol she had been placed on Zoloft with a good response. Since that time she has been binging on alcohol and using various assorted drugs such as benzodiazepines, Adderall, opiates and states that Effexor, Celexa, Lexapro were not effective. Patient the last time she was here was continued on Lamictal 100 mg twice a day and her Klonopin had been decreased and was supposed to continue to be tapered and eventually discontinued. Patient was also placed on melatonin at that time. Patient states that she doesn't know how she would've done on the Lamictal alone because she never continued it on its own after she was discharged. Patient does not endorse symptoms of psychosis she denies ever having auditory hallucinations no delusions and her paranoia is suspiciousness of others and a need to follow what other people tell her to do. Patient reports cutting herself in the past as a suicide attempt on 1 occasion. Patient describes feeling irritable and agitated with crying spells decreased motivation suicidal thoughts decreased energy and poor sleep. She states she also feels worthless and hopeless. Patient states that she is always pulled her hair out since she was younger as a soothing mechanism. Patient states that she continues to use [id number] cough syrup, cough pills, opioids, alcohol in the past as well as Adderall all to "numb" herself. Past Psychiatric History: Patient was admitted to [facility] on one occasion and was admitted here in October 2017, the patient has one admission to [facility]. Patient has been treated with Lamictal, Effexor, Zoloft, Prozac, Celexa , Klonopin, Xanax Past Medical/Surgical History: Patient reports a history of chronic back pain no surgical history Family History: Patient states her father has depression and PTSD, is also an alcohol user and opiate user. Mother was an alcohol abuser. She denies any completed suicides in the family. Social History: Patient was born and raised to parents who when she was 6 years of age. Patient's mother remarried and her she was adopted by her stepfather. Her mother when the patient was 16 years of age and she was raised by her stepfather, her adopted father. Patient has a brother and a maternal half-brother. Patient states she completed high school and attended college for 3 years. She began working full-time and states she last worked in August 2017 in [employer]. Patient states she's never been and had one prior relationship for 5 years and has a son age 6 who is currently living with his father as he obtained custody when the patient was admitted for substance use. Patient states she's had a relationship with her current boyfriend for 2 years and he is recently moved to [place] and is living there. Patient states that the father and stepmother where she was living with it was her natural father. Substance Use History: Patient states she began using alcohol at the in her teens and began binging the last 15 years and states that she would binge drink using 2 bottles of wine, pint of liquor until she passed out and reports no alcohol for the last 30 days. Patient reports marijuana use in the past and none currently. Patient states that she is abused opiates on and off and recently was using opiates from her father [place] and tramadol. Patient states that she is used benzodiazepines incorrectly that were prescribed to her, Klonopin and Xanax. She states she has not used any Klonopin for several weeks. Patient states that she abused Adderall in the past. Patient states that she is also abusing cough medicine to numb herself. Patient denies any IV drug use Patient is a tobacco user. Legal History: Patient has 2 DUIs in the past and does not of a hyster driver's license and was charged with assault and battery over 10 years ago. Mental status: Appearance/Attitude: Patient is casually dressed, makes good eye contact and is cooperative. Behavior: Patient does not exhibit any psychomotor agitation or retardation. Speech/Language: Patient is spontaneous of normal volume and rhythm and she is coherent Thought Process: Patient is goal-directed there is no evidence of loose associations or flight of ideas Thought Content: Patient denies any auditory or visual hallucinations and no delusions or paranoid ideation or elicited. Patient states that she feels she needs to listen to what people tell her to do or she won't do well. Patient states she's feeling depressed and states she's been numbing herself using cough medicine and her father's opiate pain medication. Patient states that she was feeling suicidal when she came in as well as depressed, feeling worthless with no motivation or energy. Patient reports her sleep is not been restful and her appetite is been fair to good. Suicidal/Homicidal Ideation: Patient denies current suicidal ideation but states she was thinking of suicide as an outpatient that she thought people would be better off without her. Patient denies any current homicidal ideation. Sensorium/Cognition: Patient is alert and oriented to person, place, and time and her recent and remote memory are grossly intact. Mood/Affect: Patient's mood is depressed and her affect is blunted Insight/Judgment: Insight and judgment are fair Intellectual Functioning: Patient's intellectual functioning appears average Strength/Weakness: Patient has a long-term relationship/lack of follow-up, lack of compliance use of drugs and/or alcohol Assessment: Patient presents to the emergency room complaining of suicidal ideation, depression and states that she had no follow up after she left the hospital. Patient return to her primary care physician who represcribed Effexor as well as Klonopin and the patient states that she has not been doing well since she was released. Patient states that she has not been using any alcohol for the last 30 days but has been taking her father's tramadol and [place]. She states that she is also been using cough medicine to numb herself. Patient reports not doing well on the Effexor 225 mg a day and is still reporting feeling depressed, with decreased interest and energy as well as poor sleep. Patient has continued on the Lamictal however but also that again began using Klonopin but has not taken any for the last several weeks. Patient is not able to endorse a history of manic symptoms but patient has not reports bonded well to antidepressant treatment other than the Zoloft prior to her beginning her use of substances as well as alcohol. It is unclear at this time if the patient does have a history of hypomanic episodes or the picture has been muddy by the use of substances and alcohol. Patient does not have a history of any psychotic symptoms and her reports of paranoia are more suspiciousness of people and the need to do a people tell her to please them. Patient also has a history of pulling her hair out when she is feeling irritable and on edge as well as reporting some symptoms of anxiety with hyperventilation and feeling panicky. Admission Diagnosis: Depressive disorder not otherwise specified, opioid use disorder, alcohol use disorder, other substance use disorder, anxiety disorder not otherwise specified Plan: Patient was admitted on a voluntary basis, placed on routine observation in group and activity therapy were ordered. Patient also had routine laboratory studies as well as a medical consultation. Patient will be continued on her Lamictal 100 mg twice a day and her Effexor will be discontinued. Patient will be started on Zoloft 50 mg in the morning. Patient will also be started on gabapentin 100 mg 3 times a day for her neuropathic pain. Patient's Ativan will also be discontinued. Patient will be started on melatonin 3 mg at bedtime. I reviewed the use and side effects of Zoloft with the patient to target her symptoms of depression and anxiety and for now we'll continue the Lamictal as a mood stabilizer. Patient was started on gabapentin and I reviewed the use and side effects of this medicine for her sciatic nerve pain. Patient will be discontinued from any benzodiazepines. Patient has not been on benzodiazepines for several weeks there is no concern for withdrawal. Patient will not be given any opiate pain medication. Patient will be started on melatonin at bedtime to target her sleep. We will continue to evaluate the patient's response to the Zoloft and should her depressive symptoms and anxiety symptoms improved as the Zoloft is titrated to a therapeutic dose may consider slowly decreasing her Lamictal to observe whether the patient continues to require this. Patient requires hospitalization to further stabilize her mood. Patient and I discussed possible inpatient alcohol and substance use treatment and she will consider this.
[2017-12-14] MEDS: GABAPENTIN 100 MG CAP PO SCH ×2 (16:27→20:58)
[2017-12-14 17:15] LABS: Hemoglobin A1C 4.7 % (4.0-6.0)
[2017-12-14] MEDS: MELATONIN 3 MG TABLET PO SCH (20:59)
[2017-12-14] MEDS: ACETAMINOPHEN TAB 325 MG TAB PO PRN (21:33)
[2017-12-15] MEDS: lamoTRIgine 100 MG TAB PO SCH ×2 (08:08→20:44)
[2017-12-15] MEDS: NICOTINE 14MG/24HR PATCH TRANSDERM SCH (08:08)
[2017-12-15] MEDS: GABAPENTIN 100 MG CAP PO SCH ×2 (08:08→15:06)
[2017-12-15] MEDS: SERTRALINE 50 MG TAB PO SCH (08:08)
[2017-12-15] MEDS: LOPERAMIDE 2 MG CAP PO PRN ×2 (10:22→20:45)
--- NOTE | 2017-12-15 12:05 | P.PN ---
Progress Note - Text Progress Note Date: 12/15/17 Interval History: Patient is a 37-year-old female who was seen this morning. She states that she woke up last night several times but was able to return to sleep within 20 minutes but he did take her a while to fall asleep. She reports night sweats and diarrhea. She states that she was able to eat this morning. She states that she is feeling a little better today and is trying to stay awake during the day so that she can attend groups. She reports continuing to feel worthless and depressed with decreased level of energy and anxious. She denies any current suicidal thoughts. She reports no side effects from the gabapentin which she is reported in the past has caused stuttering. Mental Status: Appearance/Attitude: Patient is casually dressed, makes good eye contact and is coherent. Behavior: Patient does not exhibit any psychomotor agitation or retardation. Speech/Language: Patient's speech is spontaneous and normal volume and rhythm and she is coherent. Thought Process: Patient is goal-directed there is no evidence of loose association or flight of ideas. Thought Content: Patient denies any auditory or visual hallucinations no delusions or paranoid ideation or elicited. Patient reports continuing to feel worthless and depressed with a decrease in her energy and little interest to do things. She also complains that she's feeling anxious and on edge. She reported having night sweats and diarrhea today. Patient states that she is trying to stay awake today to attend groups. Suicidal/Homicidal Ideation: Patient denies any current suicidal or homicidal ideation. Sensorium/Cognition: Patient is alert and oriented to person, place, and time and her recent and remote memory are grossly intact. Mood/Affect: Patient's mood is depressed and anxious and her affect is appropriate to her mood. Insight/Judgment: Patient's insight and judgment are fair Assessment: Patient reports that she had difficulty falling asleep last night but awakened several times but was able to return to sleep within 20 minutes. She takes states that she is feeling a little better this morning and will try to stay awake and attend groups today. She states that she is having some night sweats and diarrhea from the withdrawal from the opioids. Patient reports no other side effects from her medication. Patient states that she is able to eat. She reports still feeling worthless and depressed as well as anxious with a decrease in her energy and motivation. Plan: Patient will continue on Lamictal 100 mg twice a day, Zoloft 50 mg in the morning and melatonin 3 mg at bedtime. Patient will also continue on gabapentin 100 mg 3 times a day, patient states that this is caused her to have stuttering in the past and if this should return this can be discontinued as it is being used for her neuropathic pain. Patient and I discussed increasing her Zoloft on Monday. Patient should not be started on any opioids, benzodiazepines or cough medicine.
[2017-12-15] MEDS: MELATONIN 3 MG TABLET PO SCH (20:44)
[2017-12-16] MEDS: GABAPENTIN 100 MG CAP PO SCH ×4 (01:58→21:04)
[2017-12-16] MEDS: lamoTRIgine 100 MG TAB PO SCH ×2 (08:32→20:06)
[2017-12-16] MEDS: SERTRALINE 50 MG TAB PO SCH (08:32)
[2017-12-16] MEDS: NICOTINE 14MG/24HR PATCH TRANSDERM SCH (08:32)
[2017-12-16] MEDS: ACETAMINOPHEN TAB 325 MG TAB PO PRN ×2 (09:13→20:07)
--- NOTE | 2017-12-16 12:53 | P.PN ---
Progress Note - Text Progress Note Date: 12/16/17 Interval history: Patient is seen in cross coverage today. She relays she still having some difficulty with sleep. She does feel like her mood is improved and says she got some good news about going back to [place] after she is discharged. She does not seem to voice any adverse psychotropic medication side effects. Mental status exam: She is alert and cooperative with the interview. Her speech is fluent, not rapid or pressured. Thought processes are organized. Her mood is improved. She denies any current thoughts of suicide. She does not voice any thoughts of harm to others. There is no evidence of psychosis or agitation. Plan: Patient will be maintained on current psychotropic medication regimen. We 'll continue to monitor her ongoing response to monitor for any medication side effects. We'll continue to cover this patient through the weekend.
[2017-12-16] MEDS: MELATONIN 3 MG TABLET PO SCH (20:06)
[2017-12-17] MEDS: NICOTINE 14MG/24HR PATCH TRANSDERM SCH (08:40)
[2017-12-17] MEDS: GABAPENTIN 100 MG CAP PO SCH ×3 (08:41→21:01)
[2017-12-17] MEDS: SERTRALINE 50 MG TAB PO SCH (08:41)
[2017-12-17] MEDS: lamoTRIgine 100 MG TAB PO SCH ×2 (08:41→21:01)
--- NOTE | 2017-12-17 14:42 | P.PN ---
Progress Note - Text Progress Note Date: 12/17/17 Interval history: Patient is seen today in cross coverage again. She describes a lot of anxiety today. She inquires regarding a benzodiazepine. She says today that she heard news that she is not able to go to [place] now it sounds. She does not verbalize any adverse psychotropic medication side effects she relates that her mood is doing okay Mental status exam: She is alert and cooperative with the interview. Her mood is described as okay. She describes a lot of anxiety. She does not verbalize any thoughts of harm to self others. No evidence of psychosis or any agitation. Plan: We will initiate Vistaril 25 mg twice a day when necessary for anxiety. She says she has been on Vistaril the past and seems to relay that it didn't help that much, we did discuss that it may be more beneficial with a retrial. We also talked about her using coping skills. We'll continue to monitor her response to treatment for any medication side effects.
[2017-12-17] MEDS: hydrOXYzine PAMOATE 25 MG CAP PO PRN (14:44)
[2017-12-17] MEDS: MELATONIN 3 MG TABLET PO SCH (21:01)
[2017-12-18] MEDS: NICOTINE 14MG/24HR PATCH TRANSDERM SCH (08:26)
[2017-12-18] MEDS: GABAPENTIN 100 MG CAP PO SCH ×3 (08:26→21:28)
[2017-12-18] MEDS: SERTRALINE 50 MG TAB PO SCH (08:26)
[2017-12-18] MEDS: lamoTRIgine 100 MG TAB PO SCH ×2 (08:26→20:37)
[2017-12-18] MEDS ORDERED: SERTRALINE 50 MG TAB PO STA (09:05)
[2017-12-18] MEDS: ACETAMINOPHEN TAB 325 MG TAB PO PRN (09:28)
[2017-12-18] MEDS: hydrOXYzine PAMOATE 25 MG CAP PO PRN ×2 (09:28→21:21)
--- NOTE | 2017-12-18 12:47 | P.PN ---
Progress Note - Text Progress Note Date: 12/18/17 Interval History: Patient is a 37-year-old female who was seen today and she reports that her anxiety has increased as she found out that she is not to be able to return to [place] to live with her boyfriend as his sister does not feel that it would be beneficial. Patient states she is no longer having any diarrhea but continues to have difficulty sleeping for more than 4 hours at night. She reported that she now is interested in inpatient rehab programs. She reports no side effects from the medication and no suicidal ideation or other symptoms of withdrawal. She states that she is eating well. Mental Status: Appearance/Attitude: Patient is appropriately dressed, makes good eye contact and is cooperative. Behavior: Patient does not exhibit any psychomotor agitation or retardation. Speech/Language: Patient's speech is spontaneous and normal volume and rhythm and she is coherent. Thought Process: Patient is goal-directed there is no evidence of loose associations or flight of ideas. Thought Content: Patient denies any auditory or visual hallucinations no delusions or paranoid ideation or elicited. Patient states that she got more anxious this weekend and is still having difficulty sleeping more than 4 hours a night. She states that she was anxious because she is now found out she is unable to return to [place] to live with her boyfriend as his sister doesn't feel that would be advisable. Patient now is interested in inpatient rehab. She states that she is no longer having any withdrawal symptoms, no diarrhea she is eating well. Suicidal/Homicidal Ideation: Patient denies any current suicidal or homicidal ideation. Sensorium/Cognition: Patient is alert and oriented to person, place, and time and her recent and remote memory are grossly intact. Mood/Affect: Patient's mood is anxious and her affect is appropriate Insight/Judgment: Patient's insight and judgment are intact Assessment: Patient states that her anxiety increased this weekend possibly secondary to the fact that she is now wanting to be able to return to live with her boyfriend in [place]. She states that her withdrawal symptoms have stopped. Patient states that the Neurontin has been beneficial for the pain but it has not completely relieved it. She reports that she still only able to sleep for about 4 hours at night. Patient reports no suicidal ideation and voiced her interest in inpatient rehab facilities. Patient has been attending groups and activities. Plan: Patient continue on Lamictal 100 mg twice a day, Vistaril 25 mg twice a day as needed for anxiety was begun this weekend. Patient's Neurontin will be increased to 200 mg 3 times a day to target her neuropathic pain. She will continue on melatonin 3 mg at bedtime. Patient's Zoloft was increased to 100 mg daily to target her depression and anxiety. Patient was encouraged to begin the process of contacting the inpatient rehab programs to set up intake appointments. Patient continues to require hospitalization to further stabilize her mood.
[2017-12-18] MEDS: MELATONIN 3 MG TABLET PO SCH (20:37)
[2017-12-19] MEDS: hydrOXYzine PAMOATE 25 MG CAP PO PRN (08:39)
[2017-12-19] MEDS: NICOTINE 14MG/24HR PATCH TRANSDERM SCH (08:39)
[2017-12-19] MEDS: lamoTRIgine 100 MG TAB PO SCH ×2 (08:39→20:56)
[2017-12-19] MEDS: GABAPENTIN 100 MG CAP PO SCH (08:40)
[2017-12-19] MEDS: SERTRALINE 100 MG TAB PO SCH (08:40)
[2017-12-19 09:46] LABS: Appearance,Urine Cloudy (Clear); Bacteria,Urine Rare /hpf; Bilirubin,Urine Negative (Negative); Blood,Urine Negative (Negative); Color,Urine Light Yellow; Glucose,Urine (UA) Negative (Negative); Ketones,Urine Negative (Negative); Leukocyte Esterase,Urine Large (Negative); Mucus,Urine Rare /hpf; Nitrite,Urine Negative (Negative); Protein,Urine Negative (Negative); RBC,Urine 5 /hpf (0-5); Specific Gravity,Urine 1.009 (1.001-1.035); Squamous Epithelial Cell,Urine 13 /hpf (0-4); Urobilinogen,Urine <2.0 mg/dL (<2.0); WBC,Urine 22 /hpf (0-5)
--- NOTE | 2017-12-19 14:15 | P.PN ---
Progress Note - Text Progress Note Date: 12/19/17 Interval History: Patient is a 37-year-old female who was seen today who reports that she made no calls yesterday regarding inpatient rehab. She states that she was still feeling anxious and had difficulty organizing herself to make these calls. Patient states that she still not sleeping at night for more than 4 hours. She states that she ruminates at night about not being with her son, misses him and the guilt and shame she feels for not being around for him. She reports that she has had less neuropathic pain with the increase in Neurontin but continues to report feeling anxious. She states that the increase in Zoloft has not been beneficial nor has the Vistaril been beneficial. Patient and I discussed her use of caffeine and the fact that she drinks caffeine at all 3 meals as well as uses a lot of sugar. Patient says that she has been attending groups and activities. She reports that she is not having any side effects from any of the medications Mental Status: Appearance/Attitude: Patient was appropriately dressed, made good eye contact and was cooperative. Behavior: Patient does not exhibit any psychomotor agitation or retardation. Speech/Language: Patient's speech is spontaneous of normal volume and rhythm and she is coherent. Thought Process: Patient is goal-directed there is no evidence of loose association or flight of ideas Thought Content: Patient denies any auditory or visual hallucinations, no delusions or paranoid ideation were elicited. Patient continues to complain of poor sleep at night stating she only slept about 4 hours and states that she spends at least an hour and a half trying to fall asleep as she ruminates about her son, the guilt and shame about not being with him. She also continues to complain of anxiety and states that none of the medications have been beneficial to date. Patient did not contact any of the inpatient rehab programs to begin the intake process Suicidal/Homicidal Ideation: Patient denies any current suicidal or homicidal ideation Sensorium/Cognition: Patient is alert and oriented to person, place, and time and her recent and remote memory are grossly intact Mood/Affect: Patient's mood remains anxious and her affect is appropriate to her mood Insight/Judgment: Patient's insight and judgment are fair Assessment: Patient reports continued anxiety and not calling yesterday to begin the intake process in any of the inpatient rehab programs. She states her sleep remains poor and she ruminates about her son, missing him and feeling guilty and shame about the fact that she is not there for him. Patient reports that she has had some relief with her neuropathic pain from the Neurontin but the Vistaril and Zoloft have not been beneficial in decreasing her anxiety. Patient has been attending groups and activities. Plan: Patient will continue on Zoloft 100 mg daily, Lamictal 25 mg a day and melatonin 3 mg at bedtime. We'll increase her Neurontin to 300 mg 3 times a day to target her anxiety as well as her neuropathic pain. Patient also has Vistaril 25 mg twice a day as needed. Patient and I discussed her need to decrease her use of caffeine. Patient and I also discussed that she needs to contact inpatient rehab programs to begin the intake process. She and I discussed a discharge in the next several days.
[2017-12-19] MEDS: GABAPENTIN 300 MG CAP PO SCH ×2 (16:32→20:56)
[2017-12-19] MEDS: MELATONIN 3 MG TABLET PO SCH (20:57)
[2017-12-19] MEDS: ACETAMINOPHEN TAB 325 MG TAB PO PRN (22:10)
[2017-12-20 06:41] VITALS: RESP 16
[2017-12-20] MEDS: SERTRALINE 100 MG TAB PO SCH (08:49)
[2017-12-20] MEDS: NICOTINE 14MG/24HR PATCH TRANSDERM SCH (08:49)
[2017-12-20] MEDS: lamoTRIgine 100 MG TAB PO SCH ×2 (08:49→20:56)
[2017-12-20] MEDS: GABAPENTIN 300 MG CAP PO SCH ×3 (08:49→20:56)
--- NOTE | 2017-12-20 13:04 | P.PN ---
Progress Note - Text Progress Note Date: 12/20/17 Interval History: Patient is a 37-year-old female who was seen today and reports that she has yet to make contact with [facility] regarding an intake. She continues to complain that her anxiety is still there and that the Vistaril does nothing for her anxiety and she notes that it was slightly better last evening. Patient states that she spoke with her boyfriend last evening was intoxicated and ended the conversation. Patient reports that she is not having any suicidal ideation and her only complaint is anxiety. Patient states the Vistaril does not help with her anxiety. Mental Status: Appearance/Attitude: Patient is casually dressed, makes good eye contact and was cooperative Behavior: Patient does not exhibit any psychomotor agitation or retardation. Speech/Language: Patient's speech was spontaneous of normal volume and rhythm and she is coherent. Thought Process: Patient is goal-directed there is no evidence of loose association or flight of ideas Thought Content: Patient denies any auditory or visual hallucinations and no delusions or paranoid ideation is elicited. Patient reports she continues to feel anxious, states that she slept 8 hours last night and her appetite is good. Suicidal/Homicidal Ideation: She denies any current suicidal or homicidal ideation Sensorium/Cognition: Patient is alert and oriented to person, place, and time and her recent and remote memory is grossly intact Mood/Affect: Patient's mood is anxious and her affect is appropriate Insight/Judgment: Patient's insight and judgment are fair Assessment: Age and reports that she continues to feel anxious she is no longer feeling depressed and no current suicidal ideation. She reports that the Vistaril has not been helpful for her anxiety. The patient did sleep 8 hours last evening and has been attending groups and activities patient has yet to contact [facility] to set up an intake appointment. Patient reports that the increase in the Neurontin has been somewhat helpful for her anxiety. Plan: Patient will continue on Neurontin 300 mg 3 times a day, Lamictal 100 mg twice a day, melatonin 3 mg at bedtime and will discontinue the Vistaril as the patient does not feel has been helpful. Will increase the patient's Zoloft to 150 mg in the morning beginning tomorrow. Patient was encouraged to contact [facility] today to set up an intake appointment. Will consider discharge in the next day or so.
[2017-12-20] MEDS: ACETAMINOPHEN TAB 325 MG TAB PO PRN (17:07)
[2017-12-20] MEDS: MELATONIN 3 MG TABLET PO SCH (20:56)
[2017-12-21 07:00] VITALS: TEMP 97.8
[2017-12-21] MEDS: GABAPENTIN 300 MG CAP PO SCH ×3 (08:49→20:39)
[2017-12-21] MEDS: SERTRALINE 100 MG TAB PO SCH (08:49)
[2017-12-21] MEDS: lamoTRIgine 100 MG TAB PO SCH ×2 (08:49→20:39)
[2017-12-21] MEDS: NICOTINE 14MG/24HR PATCH TRANSDERM SCH (08:49)
--- NOTE | 2017-12-21 11:30 | P.PN ---
Progress Note - Text Progress Note Date: 12/21/17 Interval History: Patient is a 37-year-old female who was seen today and she immediately stated that she's not ready for discharge because she is afraid of what she might do if she was released from the hospital either today or tomorrow. Patient states that she had yet to contact [facility] for an intake appointment. Patient states that she doesn't trust herself if she is released and when I asked her why she really could not come up with an answer. Stating that she dislikes shelters because she stayed there in the past doesn't like the rules the fact that she have to be there at a specific time for an intake. Patient reports that she doesn't think the Zoloft has been completely effective yet. She continues to complain of anxiety and that nothing has helped. Mental Status: Appearance/Attitude: Patient is casually dressed makes good eye contact and was cooperative. Behavior: Patient does not exhibit any psychomotor agitation or retardation. Speech/Language: Patient is spontaneous speech is of normal volume and rhythm and she is coherent Thought Process: Patient is goal-directed there is no evidence of loose association or flight of ideas Thought Content: Patient denies any auditory or visual hallucinations no delusions or paranoid ideation or elicited. Patient immediately verbalized upon walking into the office that she didn't trust herself to leave the hospital and not act on suicidal thoughts. She could not explain to me why this suddenly occurred. She states that she probably will feel the same tomorrow. She voiced that she continues to feel anxious and no changes in the medications have been beneficial. She reports that her Zoloft is not completely effective yet. Patient is sleeping well at night and her appetite is good. She reports that the Neurontin has been helpful for her neuropathic pain but has done little for her anxiety. Suicidal/Homicidal Ideation: Patient states that she doesn't trust herself to leave the hospital, she denied any current plan or intent to act while in the hospital and no current homicidal ideation Sensorium/Cognition: Patient is alert and oriented to person, place, and time and her recent and remote memory are grossly intact Mood/Affect: Patient's mood is pleasant, she complains of being extremely anxious and her affect is appropriate Insight/Judgment: Patient's insight and judgment are fair Assessment: Patient and I discussed earlier this week discharge possibly on or Monday and at that time the patient voiced no suicidal ideation or concerns about leaving the hospital other than the fact that she had no place to live. Patient today voiced immediately upon entering my office that she did not trust herself to leave today or tomorrow. When we met the patient had yet to call [facility] for an intake appointment as she and I had discussed since the beginning of this week. Patient also voiced that her Zoloft wasn't yet completely effective and she was still feeling extremely anxious even though there is no evidence of anxiety while she is in the office speaking with me. Patient states that she dislikes living in shelters and has done in the past and complained about the rules and the fact that the intake had a set time. Patient stated that she's been attending groups but not all of the activity groups. Plan: Patient will continue on Neurontin 300 mg 3 times a day, Zoloft 1 or 50 mg in the morning and Lamictal 100 mg twice a day. Patient and I discussed again that she needs to contact [facility], which she later approached me and stated that she had done. I discussed with the patient that she needs to think of different coping strategies for her concerns about leaving the hospital, that she needs to develop coping strategies to deal with her anxiety as well as in the past she has used benzodiazepines and alcohol to treat her anxiety. Patient and I discussed that we would reevaluate her tomorrow regarding discharge.
[2017-12-21] MEDS: MELATONIN 3 MG TABLET PO SCH (20:39)
[2017-12-22 06:27] VITALS: BP 92/53; PULSE 62
[2017-12-22] MEDS: NICOTINE 14MG/24HR PATCH TRANSDERM SCH (08:39)
[2017-12-22] MEDS: SERTRALINE 100 MG TAB PO SCH (08:40)
[2017-12-22] MEDS: lamoTRIgine 100 MG TAB PO SCH (08:40)
[2017-12-22] MEDS: GABAPENTIN 300 MG CAP PO SCH (08:40)
--- NOTE | 2017-12-22 10:17 | P.DS ---
Providers Date of admission: 12/13/17 18:31 Expected date of discharge: 12/22/17 Attending physician: Mell Templeton MD Consults: 12/13/17 19:48 Consult Physician Routine Consulting Provider: Vicki Turk Consult Reason/Comments: follow up H & P Do you want consulting provider notified?: Yes Primary care physician: Yuan Lopez Hospital Course: Discharge Diagnosis: Depressive disorder not otherwise specified, opioid use disorder, alcohol use disorder, anxiety disorder not otherwise specified Reason for Admission: Patient is a 37-year-old female who presented to the emergency room reporting suicidal ideation. Patient had been discharged from the inpatient unit on October 31 and she states that she [facility] after [facility] but went back to see her primary care physician who restarted her on Effexor to a dose of 225 mg as well as represcribed her Klonopin 1 mg a day. She continued on the Lamictal 100 mg twice a day. Patient states that she had been living with her father and stepmother but that that was an inappropriate living situation for her as her father is an alcohol abuser and her stepmother has bipolar disorder. She states that she went to visit her boyfriend are several days in [place] and returned hearing came to the emergency room. Patient states that she has not taken any Klonopin for the last 2 weeks. Patient states that she's been taking pain medications from her father with tramadol and Laona's. She also reports using [id number] cough syrup and cough pills that she buys to help "numb" her. Patient states that she has continued to feel depressed, with little interest or energy to do things, continuing to report symptoms of anxiety where she has episodes of hyperventilation, feeling dizzy and she states that she feels like she is losing her mind. Patient states she will also pull out her hair at times. Patient denies any psychotic symptoms currently or in the past. Patient does state that she is suspicious of people and states that she feels she needs to listen to what people tell her to do oral something bad will happen. Patient states that in the past before she began using substances and alcohol she had been placed on Zoloft with a good response. Since that time she has been binging on alcohol and using various assorted drugs such as benzodiazepines, Adderall, opiates and states that Effexor, Celexa, Lexapro were not effective. Patient the last time she was here was continued on Lamictal 100 mg twice a day and her Klonopin had been decreased and was supposed to continue to be tapered and eventually discontinued. Patient was also placed on melatonin at that time. Patient states that she doesn't know how she would've done on the Lamictal alone because she never continued it on its own after she was discharged. Patient does not endorse symptoms of psychosis she denies ever having auditory hallucinations no delusions and her paranoia is suspiciousness of others and a need to follow what other people tell her to do. Patient reports cutting herself in the past as a suicide attempt on 1 occasion. Patient describes feeling irritable and agitated with crying spells decreased motivation suicidal thoughts decreased energy and poor sleep. She states she also feels worthless and hopeless. Patient states that she is always pulled her hair out since she was younger as a soothing mechanism. Patient states that she continues to use [id number] cough syrup, cough pills, opioids, alcohol in the past as well as Adderall all to "numb" herself. Mental status on Admission: Appearance/Attitude: Patient is casually dressed, makes good eye contact and is cooperative. Behavior: Patient does not exhibit any psychomotor agitation or retardation. Speech/Language: Patient is spontaneous of normal volume and rhythm and she is coherent Thought Process: Patient is goal-directed there is no evidence of loose associations or flight of ideas Thought Content: Patient denies any auditory or visual hallucinations and no delusions or paranoid ideation or elicited. Patient states that she feels she needs to listen to what people tell her to do or she won't do well. Patient states she's feeling depressed and states she's been numbing herself using cough medicine and her father's opiate pain medication. Patient states that she was feeling suicidal when she came in as well as depressed, feeling worthless with no motivation or energy. Patient reports her sleep is not been restful and her appetite is been fair to good. Suicidal/Homicidal Ideation: Patient denies current suicidal ideation but states she was thinking of suicide as an outpatient that she thought people would be better off without her. Patient denies any current homicidal ideation. Sensorium/Cognition: Patient is alert and oriented to person, place, and time and her recent and remote memory are grossly intact. Mood/Affect: Patient's mood is depressed and her affect is blunted Insight/Judgment: Insight and judgment are fair Hospital Course: Patient was admitted on a voluntary basis placed on routine precautions and group and activity therapy were ordered. Patient was also ordered routine laboratory studies as well as a medical consultation. Patient was continued on her Lamictal 100 mg twice a day and her Effexor was discontinued. Patient began Zoloft 50 mg in the morning that was eventually titrated to a dose of 150 mg. Patient was also begun on gabapentin 100 mg 3 times a day for her neuropathic pain and to assist with anxiety and this was eventually increased to a dose of 300 mg 3 times a day. Patient's Ativan was discontinued and she was started on melatonin 3 mg at bedtime. Patient had not been using any benzodiazepines for several weeks and there was no concern for withdrawal and so the reason for the Ativan being discontinued. Patient was initially ambivalent about going to inpatient rehab program stating that she was going to return to [place] to live with her boyfriend. Patient then reported that her boyfriend's sister did not want her returning to [place] and so the patient began to consider inpatient rehab. Patient was encouraged to contact inpatient rehab and did not do so until the fourth day after it is been discussed. Patient also found a place to live as prior to this the patient was going to be living in a [facility]. Patient was reluctant to leave the hospital reporting that her medications were not working fully yet as well as complaints of anxiety however after she dislocated a place to live the patient was agreeable to discharge. Patient reported no side effects from her medication and felt they were effective and she reported that she was sleeping well and with her improved sleep her anxiety had decreased. Allergies No Known Allergies Allergy (Verified 12/13/17 20:37) Laboratory Last Values WBC 8.3 k/uL (3.8-10.6) 12/14/17 09:31 RBC 4.14 m/uL (3.80-5.40) 12/14/17 09:31 Hgb 13.4 gm/dL (11.4-16.0) 12/14/17 09:31 Hct 38.1 % (34.0-46.0) 12/14/17 09: MCV 92.1 fL (80.0-100.0) 12/14/17 09: MCH 32.3 pg (25.0-35.0) 12/14/17: MCHC 35.1 g/dL (31.0-37.0) 12/14/17: RDW 12.8 % (11.5-15.5) 12/14/17: Plt Count 336 k/uL (150-450) 12/14/17: Neutrophils % 72 % 12/14/17: Lymphocytes % 20 % 12/14/17: Monocytes % 5 % 12/14/17: Eosinophils % 2 % 12/14/17: Basophils % 1 % 12/14/17: Neutrophils # 5.9 k/uL (1.3-7.7) 12/14/17: Lymphocytes # 1.6 k/uL (1.0-4.8) 12/14/17: Monocytes # 0.4 k/uL (0-1.0) 12/14/17: Eosinophils # 0.1 k/uL (0-0.7) 12/14/17: Basophils # 0.0 k/uL (0-0.2) 12/14/17: Sodium 144 mmol/L (137-145) 12/14/17: Potassium 4.3 mmol/L (3.5-5.1) 12/14/17: Chloride 119 mmol/L (98-107) H 12/14/17: Carbon Dioxide 24 mmol/L (22-30) 12/14/17: Anion Gap 1 mmol/L 12/14/17: BUN 17 mg/dL (7-17) 12/14/17: Creatinine 0.73 mg/dL (0.52-1.04) 12/14/17 09: Est GFR (CKD-EPI)AfAm >90 (>60 ml/min/1.73 sqM) 12/14/17: Est GFR (CKD-EPI)NonAf >90 (>60 ml/min/1.73 sqM) 12/14/17: Glucose 101 mg/dL (74-99) H 12/14/17: Estimated Ave Glu mg/dL 88 12/14/17: Hemoglobin A1c 4.7 % (4.0-6.0) 12/14/17: Calcium 9.8 mg/dL (8.4-10.2) 12/14/17: Total Bilirubin 0.4 mg/dL (0.2-1.3) 12/14/17: AST 19 U/L (14-36) 12/14/17: ALT 25 U/L (9-52) 12/14/17: Alkaline Phosphatase 53 U/L (38-126) 12/14/17: Total Protein 6.8 g/dL (6.3-8.2) 12/14/17 Albumin 4.4 g/dL (3.5-5.0) 12/14/17: Triglycerides 70 mg/dL (<150) 12/14/17 Cholesterol 166 mg/dL (<200) 12/14/17 LDL Cholesterol, Calc 96 mg/dL (0-99) 12/14/17 HDL Cholesterol 56 mg/dL (40-60) 12/14/17: TSH 0.814 mIU/L (0.465-4.680) 12/14/17: Urine Color Light Yellow 12/19/17: Urine Appearance Cloudy (Clear) H 12/19/17: Urine pH 6.0 (5.0-8.0) 12/19/17: Ur Specific Deaver 1.009 (1.001-1.035) 12/19/17: Urine Protein Negative (Negative) 12/19/17: Urine Glucose (UA) Negative (Negative) 12/19/17: Urine Ketones Negative (Negative) 12/19/17: Urine Blood Negative (Negative) 12/19/17: Urine Nitrite Negative (Negative) 12/19/17: Urine Bilirubin Negative (Negative) 12/19/17: Urine Urobilinogen <2.0 mg/dL (<2.0) 12/19/17 09: Ur Leukocyte Esterase Large (Negative) H 12/19/17:20 Urine RBC 5 /hpf (0-5) 05/15/18 09:20 Urine WBC 22 /hpf (0-5) H 12/19/17 09:20 Ur Squamous Epith Cells 13 /hpf (0-4) H 12/19/17 09:20 Urine Bacteria Rare /hpf (None) H 12/19/17 09:20 Urine Mucus Rare /hpf (None) H 12/19/17 09:20 Urine HCG, Qual Not Detected (Not Detectd) 12/13/17 16:40 Urine Opiates Screen Detected (NotDetected) H 12/13/17 16:40 Ur Oxycodone Screen Not Detected (NotDetected) 12/13/17 16:40 Urine Methadone Screen Not Detected (NotDetected) 12/13/17 16:40 Ur Propoxyphene Screen Not Detected (NotDetected) 12/13/17 16:40 Ur Barbiturates Screen Not Detected (NotDetected) 12/13/17 16:40 U Tricyclic Antidepress Not Detected (NotDetected) 12/13/17 16:40 Ur Phencyclidine Scrn Not Detected (NotDetected) 12/13/17 16:40 Ur Amphetamines Screen Not Detected (NotDetected) 12/13/17 16:40 U Methamphetamines Scrn Not Detected (NotDetected) 12/13/17 16:40 U Benzodiazepines Scrn Not Detected (NotDetected) 12/13/17 16:40 Urine Cocaine Screen Not Detected (NotDetected) 12/13/17 16:40 U Marijuana (THC) Screen Not Detected (NotDetected) 12/13/17 16:40 Discharge Mental Status: Appearance/Attitude: Patient is casually dressed, makes good eye contact and is cooperative. Behavior: A shunt does not exhibit any psychomotor agitation or retardation. Speech/Language: Patient's speech is spontaneous of normal volume and rhythm and she is coherent. Thought Process: Patient is goal-directed there is no evidence of loose association or flight of ideas. Thought Content: Patient denied any auditory or visual hallucinations no delusions or paranoid ideation were elicited. Patient stated that her anxiety had improved as she had been sleeping better. She reports that she found a place to live and feels more comfortable. She states that the gabapentin is been effective for both her neuropathic pain as well as her anxiety. Suicidal/Homicidal Ideation: Patient denied any current suicidal or homicidal ideation. Sensorium/Cognition: Patient is alert and oriented to person, place, and time and her recent and remote memory are grossly intact Mood/Affect: Patient's mood is euthymic and her affect is appropriate Insight/Judgment: Patient's insight and judgment are fair Risk Assessment: Patient's risk for self harm is low Discharge Plan: Patient will be discharged to live with a friend, she will continue on Zoloft 150 mg in the morning, Lamictal 100 mg twice a day, melatonin 3 mg at bedtime and gabapentin 300 mg 3 times a day. Patient was encouraged to avoid all alcohol and drugs and be compliant with follow-up care and medications. Patient will follow-up at [facility] regarding the results of her urine culture as the final results are not available at the time of her discharge. Patient Condition at Discharge: Stable Plan - Discharge Summary Discharge Rx Participant: Yes New Discharge Prescriptions: New Gabapentin [Neurontin] 300 mg PO TID #42 cap Melatonin 3 mg PO HS #28 tablet Sertraline [Zoloft] 150 mg PO DAILY #21 tab Continue lamoTRIgine [LaMICtal] 100 mg PO BID #28 tab Discontinued Venlafaxine HCl [Effexor XR] 75 mg PO DAILY Venlafaxine HCl [Effexor XR] 150 mg PO DAILY clonazePAM [KlonoPIN] 1 mg PO DAILY PRN PRN Reason: Anxiety Discharge Medication List Gabapentin [Neurontin] 300 mg PO TID #42 cap 12/22/17 [Rx] Melatonin 3 mg PO HS #28 tablet 12/22/17 [Rx] Sertraline [Zoloft] 150 mg PO DAILY #21 tab 12/22/17 [Rx] lamoTRIgine [LaMICtal] 100 mg PO BID #28 tab 12/22/17 [Rx] Follow up Appointment(s)/Referral(s): [facility] [Outside] - 1-2 Days (walk in intake: today until 3pm Monday 830- 3pm Monday 10.30 - 5pm) Yuan Lopez MD [Primary Care Provider] - 1-2 days Patient Instructions/Handouts: Depression (DC), Suicide Prevention for Adults ( DC) Activity/Diet/Wound Care/Special Instructions: Activity and Diet as tolerated. Avoid the use of street drugs and alcohol. Take all medications as prescribed, when you are in need of refills contact your medical doctor or psychiatrist. Please go to all scheduled outpatient appointments for aftercare treatment. If symptoms return or worsen you can call the crisis line @ and/or return to the nearest emergency room for evaluation. Please follow up at the [facility] regarding results of urine culture done in hospital Discharge Disposition: HOME SELF-CARE
[2017-12-22] MEDS ORDERED: CEPHALEXIN 500 MG CAP PO SCH (21:00)
== END 2017-12-22 13:13 | disposition home or self-care (01) | DRG 881 ==
LOC: EC 15:26 → 3MHU 18:31
PROVIDERS: ADMIT Psychiatry & Neurology Psychiatry; ATTEND Psychiatry & Neurology Psychiatry
DX: F32.9 Major depressive disorder, single episode, unspecified (principal); R45.851 Suicidal ideations; F41.9 Anxiety disorder, unspecified; F60.3 Borderline personality disorder; G89.29 Other chronic pain; M54.30 Sciatica, unspecified side; M19.90 Unspecified osteoarthritis, unspecified site; G47.9 Sleep disorder, unspecified; R19.7 Diarrhea, unspecified; F17.210 Nicotine dependence, cigarettes, uncomplicated; F12.90 Cannabis use, unspecified, uncomplicated; F11.90 Opioid use, unspecified, uncomplicated; Z72.89 Other problems related to lifestyle; Z79.899 Other long term (current) drug therapy; Z81.8 Family history of other mental and behavioral disorders; Z82.49 Family history of ischemic heart disease and other diseases of the circulatory system; Z81.1 Family history of alcohol abuse and dependence; Z83.6 Family history of other diseases of the respiratory system
CPT/HCPCS: 80053; 80061; 80306; 81001; 81025; 82075; 83036; 84443; 85025; 87077; 87086; 87186; 99285

== ENCOUNTER 2018-01-03 17:22 | Emergency (ER) | payer OTHER ==
[2018-01-03 17:55] VITALS: TEMP 98.6
[2018-01-03] MEDS ORDERED: SODIUM CHLORIDE 0.9% 1,000 ML IV STA (18:01)
--- NOTE | 2018-01-03 18:04 | ED ---
Overdose HPI - General Chief Complaint: Overdose Stated Complaint: overdose Time Seen by Provider: 01/03/18 17:50 Source: patient, RN notes reviewed, old records reviewed Mode of arrival: ambulatory Limitations: no limitations - History of Present Illness Initial Comments: Patient is a 37-year-old female with a history of depression and anxiety presents today after overdosing on 30 Coricidin pills. She reports that she took them 2 hours prior to arrival. She arrives to the emergency Department via EMS. She is diaphoretic. She has no complaints at this time. She states she discussed some anxious. She reports that she took these medications not as an attempt of suicide. She is going to [facility] tomorrow. She states that she did this is one last high before she goes to detox. Patient states that she uses no other drugs besides the cold medication. - Related Data Home Medications Medication Instructions Recorded Confirmed Sertraline [Zoloft] 200 mg PO DAILY 01/03/18 01/03/18 clonazePAM [KlonoPIN] 1 mg PO HS 01/03/18 01/03/18 lamoTRIgine [LaMICtal] 200 mg PO DAILY 01/03/18 01/03/18 Previous Rx's Medication Instructions Recorded Gabapentin [Neurontin] 300 mg PO TID #42 cap 12/22/17 Melatonin 3 mg PO HS #28 tablet 12/22/17 Allergies Allergy/AdvReac Type Severity Reaction Status Date / Time No Known Allergies Allergy Verified 01/03/18 18:21 Review of Systems ROS Statement: Those systems with pertinent positive or pertinent negative responses have been documented in the HPI. ROS Other: All systems not noted in ROS Statement are negative. Past Medical History Past Medical History: Musculoskeletal Disorder, Osteoarthritis (OA) Additional Past Medical History / Comment(s): depression, anxiety, Pt states that she has had a seizure twice in the past when abusing different substances like cough sryup. History of Any Multi-Drug Resistant Organisms: None Reported Past Surgical History: Section Past Anesthesia/Blood Transfusion Reactions: No Reported Reaction Past Psychological History: Anxiety, Depression Smoking Status: Current every day smoker Past Alcohol Use History: Occasional Past Drug Use History: Marijuana, Prescription Drug Abuse - Past Family History Father Family Medical History: Myocardial Infarction ([place]) Additional Family Medical History / Comment(s): Alcoholism Mother Family Medical History: Deep Vein Thrombosis (DVT), Pneumonia, Respiratory Disorder Additional Family Medical History / Comment(s): Alcoholism Son(s) Family Medical History: No Reported History General Exam - General Exam Comments Initial Comments: This is a 37-year-old male female. She is alert. Diaphoretic. Tachycardic at 112 bpm. Limitations: no limitations General appearance: alert, anxious Head exam: Present: atraumatic, normocephalic, normal inspection Eye exam: Present: normal appearance, PERRL, EOMI. Absent: scleral icterus, conjunctival injection, periorbital swelling ENT exam: Present: normal exam, mucous membranes moist Neck exam: Present: normal inspection. Absent: tenderness, meningismus, lymphadenopathy Respiratory exam: Present: normal lung sounds bilaterally. Absent: respiratory distress, wheezes, rales, rhonchi, stridor Cardiovascular Exam: Present: regular rate, normal rhythm, normal heart sounds. Absent: systolic murmur, diastolic murmur, rubs, gallop, clicks GI/Abdominal exam: Present: soft, normal bowel sounds. Absent: distended, tenderness, guarding, rebound, rigid Extremities exam: Present: normal inspection, full ROM, normal capillary refill. Absent: tenderness, pedal edema, joint swelling, calf tenderness Back exam: Present: normal inspection Neurological exam: Present: alert, oriented X3, CN II-XII intact Psychiatric exam: Present: normal affect, normal mood Skin exam: Present: warm, dry, intact, normal color. Absent: rash Course Vital Signs 01/03/18 01/03/18 01/03/18 17:48 17:56 18:54 Temperature 98.6 F Pulse Rate 111 H 114 H Pulse Rate [ 111 H Relief Cook ] Respiratory 20 18 Rate Blood Pressure 149/73 140/70 O2 Sat by Pulse 97 98 Oximetry 01/03/18 20:13 Temperature Pulse Rate 91 Pulse Rate [ Relief Cook ] Respiratory 18 Rate Blood Pressure 131/69 O2 Sat by Pulse 98 Oximetry - Reevaluation(s) Reevaluation #1: 01/03/18 18:03 Poison control is being contacted. Reevaluation #2: 01/03/18 18:44 Poison control was contacted. They recommended supportive measures including IV fluids. Seizure precautions. I will re-evaluate her and our we'll recheck an EKG at that time to know if there is any QT changes. Reevaluation #3: 01/03/18 21:13 Patient is reevaluated and resting comfortably in bed. Does feel better after the Ativan. Patient case discussed with poison control again. They state their with her vital signs and keep repeat EKG she is stable to go home. Repeat EKG performed at 2018 showed normal sinus rhythm ventricular 83 beats were minute. Pulse 160. QRS duration 98. QTQTC's 400/470. Medical Decision Making - Medical Decision Making 37-year-old female intentional overdose on cold pills. She took 30. Initially came in tachycardic and diaphoretic. Throughout her ER stay she is given IV fluids T. Lab work was unremarkable. Poison control was contacted. When repeat EKG. Her QTC was done and within normal limits. She is alert and oriented. She will be going home with family. She's not suicidal. Tomorrow she is going to a drug rehab facility. Discussed appropriate follow-up. - Lab Data Result diagrams: 01/03/18 18:13 01/03/18 18:13 Lab Results 01/03/18 01/03/18 Range/Units 18:13 18:13 WBC 12.8 H (3.8-10.6) k/uL RBC 4.17 (3.80-5.40) m/uL Hgb 13.4 (11.4-16.0) gm/dL Hct 38.4 (34.0-46.0) % MCV 92.1 (80.0-100.0) fL MCH 32.1 (25.0-35.0) pg MCHC 34.8 (31.0-37.0) g/dL RDW 12.9 (11.5-15.5) % Plt Count 365 (150-450) k/uL Neutrophils % 86 % Lymphocytes % 9 % Monocytes % 4 % Eosinophils % 0 % Basophils % 0 % Neutrophils # 11.0 H (1.3-7.7) k/uL Lymphocytes # 1.1 (1.0-4.8) k/uL Monocytes # 0.5 (0-1.0) k/uL Eosinophils # 0.0 (0-0.7) k/uL Basophils # 0.0 (0-0.2) k/uL Sodium 143 (137-145) mmol/L Potassium 3.9 (3.5-5.1) mmol/L Chloride 116 H (98-107) mmol/L Carbon Dioxide 21 L (22-30) mmol/L Anion Gap 6 mmol/L BUN 13 (7-17) mg/dL Creatinine 0.74 (0.52-1.04) mg/dL Est GFR (CKD-EPI)AfAm >90 (>60 ml/min/1.73 sqM) Est GFR (CKD-EPI)NonAf >90 (>60 ml/min/1.73 sqM) Glucose 93 (74-99) mg/dL Calcium 9.5 (8.4-10.2) mg/dL Total Bilirubin 0.2 (0.2-1.3) mg/dL AST 22 (14-36) U/L ALT 32 (9-52) U/L Alkaline Phosphatase 71 (38-126) U/L Total Protein 7.2 (6.3-8.2) g/dL Albumin 4.7 (3.5-5.0) g/dL Salicylates <1.0 mg/dL Acetaminophen <10.0 ug/mL Serum Alcohol <10 mg/dL 01/03/18 18:44 EKG shows normal sinus rhythm, possible left atrial enlargement. Borderline EKG. Ventricular rate of 100 bpm. Pulse 154. QRS duration 90. QTQTC services 462/469. Disposition Clinical Impression: Overdose, Acute anxiety Disposition: HOME SELF-CARE Condition: Good Instructions: Adult Overdose (ED) Additional Instructions: Follow up with [facility] tomorrow. Return to emergency department if any alarming signs or symptoms occur. Is patient prescribed a controlled substance at d/c from ED?: No Referrals: Yuan Lopez MD [REFERRING] - 1-2 days Time of Disposition: 21:18
[2018-01-03] MEDS ORDERED: SODIUM CHLORIDE 0.9% 1,000 ML IV SCH (18:15)
[2018-01-03 18:32] LABS: Basophils % (A) 0 %; Eosinophils % (A) 0 %; HCT 38.4 % (34.0-46.0); HGB 13.4 gm/dL (11.4-16.0); Lymphocytes # (A) 1.1 k/uL (1.0-4.8); Lymphocytes % (A) 9 %; MCH 32.1 pg (25.0-35.0); MCHC 34.8 g/dL (31.0-37.0); MCV 92.1 fL (80.0-100.0); Mean Platelet Volume 6.4; Monocytes # (A) 0.5 k/uL (0-1.0); Monocytes % (A) 4 %; Neutrophils % (A) 86 %; Platelet Count 365 k/uL (150-450); RBC 4.17 m/uL (3.80-5.40); RDW 12.9 % (11.5-15.5); WBC 12.8 k/uL (3.8-10.6)
[2018-01-03 18:40] LABS: ALT 32 U/L (9-52); AST 22 U/L (14-36); Acetaminophen <10.0 ug/mL; Albumin 4.7 g/dL (3.5-5.0); Alcohol <10 mg/dL; Alkaline Phosphatase 71 U/L (38-126); Blood Urea Nitrogen 13 mg/dL (7-17); Calcium 9.5 mg/dL (8.4-10.2); Carbon Dioxide 21 mmol/L (22-30); Glucose 93 mg/dL (74-99); Potassium 3.9 mmol/L (3.5-5.1); Salicylate <1.0 mg/dL; Sodium 143 mmol/L (137-145); Total Bilirubin 0.2 mg/dL (0.2-1.3); Total Protein 7.2 g/dL (6.3-8.2)
[2018-01-03 18:52] LABS: Anion Gap 6 mmol/L; Chloride 116 mmol/L (98-107)
[2018-01-03 18:56] VITALS: RESP 18
[2018-01-03] MEDS ORDERED: LORazepam 1 MG TAB PO STA (19:58)
[2018-01-03 20:20] VITALS: BP 131/69; PULSE 91
[2018-01-03 21:32] LABS: Amphetamine Screen,Urine Not Detected (NotDetected); Barbiturate Screen,Urine Not Detected (NotDetected); Benzodiazepines Screen,Urine Not Detected (NotDetected); Cocaine Screen,Urine Not Detected (NotDetected); Methadone Screen, Urine Not Detected (NotDetected); Opiate Screen,Urine Not Detected (NotDetected); Oxycodone Screen, Urine Not Detected (NotDetected); Phencyclidine Screen,Urine Detected (NotDetected); Tricyclic Antidepressant,Urine Not Detected (NotDetected); Urn Cannabinoid Scrn Not Detected (NotDetected)
== END 2018-01-03 21:54 | disposition home or self-care (01) ==
LOC: EC 17:22
DX: T48.5X1A Poisoning by other anti-common-cold drugs, accidental (unintentional), initial encounter (principal); F41.9 Anxiety disorder, unspecified; F32.9 Major depressive disorder, single episode, unspecified; F17.200 Nicotine dependence, unspecified, uncomplicated; Z79.899 Other long term (current) drug therapy
CPT/HCPCS: 36415; 80053; 80306; 80320; 81025; 83520; 85025; 93005; 96360; 96361; 99284

== ENCOUNTER 2018-06-17 00:40 | Emergency (ER) | payer OTHER ==
[2018-06-17] MEDS ORDERED: SODIUM CHLORIDE 0.9% 1,000 ML IV STA (00:55)
--- NOTE | 2018-06-17 01:04 | ED ---
General Adult HPI - General Source: patient, EMS, RN notes reviewed Mode of arrival: EMS Limitations: no limitations <Nick Niño - Last Filed: 06/17/18 03:56> <Melani Gray - Last Filed: 06/18/18 00:00> - General Stated complaint: Overdose Time Seen by Provider: 06/17/18 00:44 - History of Present Illness Initial comments: 38-year-old female presents emergency Department chief complaint overdose. Patient reportedly took methocarbamol 500 mg 5 tablets, Benadryl 50 mg 4 tablets , one bottle of Robitussin. Patient denies any alcohol use. Denies any illicit drug use at this time states that she has a history of snorting Adderall. Patient states she has not done this in a while. She does state that she was hoping to take his medications did not wake up. Patient admits that she is very nervous at this time. Denies chest pain, shortness breath, headache, dizziness, nausea vomiting. Denies Homicidal ideation (Nick Niño) - Related Data Home Medications Medication Instructions Recorded Confirmed Sertraline [Zoloft] 200 mg PO DAILY 01/03/18 01/03/18 clonazePAM [KlonoPIN] 1 mg PO HS 01/03/18 01/03/18 lamoTRIgine [LaMICtal] 200 mg PO DAILY 01/03/18 01/03/18 Previous Rx's Medication Instructions Recorded Gabapentin [Neurontin] 300 mg PO TID #42 cap 12/22/17 Melatonin 3 mg PO HS #28 tablet 12/22/17 Allergies Allergy/AdvReac Type Severity Reaction Status Date / Time No Known Allergies Allergy Verified 01/03/18 18:21 Review of Systems ROS Other: All systems not noted in ROS Statement are negative. <Nick Niño - Last Filed: 06/17/18 03:56> ROS Other: All systems not noted in ROS Statement are negative. <Melani Gray - Last Filed: 06/18/18 00:00> ROS Statement: Those systems with pertinent positive or pertinent negative responses have been documented in the HPI. Past Medical History Past Medical History: Musculoskeletal Disorder, Osteoarthritis (OA) Additional Past Medical History / Comment(s): depression, anxiety, Pt states that she has had a seizure twice in the past when abusing different substances like cough sryup. History of Any Multi-Drug Resistant Organisms: None Reported Past Surgical History: Section Past Anesthesia/Blood Transfusion Reactions: No Reported Reaction Past Psychological History: Anxiety, Depression Smoking Status: Current every day smoker Past Alcohol Use History: Occasional Past Drug Use History: Marijuana, Prescription Drug Abuse - Past Family History Father Family Medical History: Myocardial Infarction ([place]) Additional Family Medical History / Comment(s): Alcoholism Mother Family Medical History: Deep Vein Thrombosis (DVT), Pneumonia, Respiratory Disorder Additional Family Medical History / Comment(s): Alcoholism Son(s) Family Medical History: No Reported History <Nick Niño - Last Filed: 06/17/18 03:56> General Exam Limitations: no limitations General appearance: alert, in no apparent distress Head exam: Present: atraumatic, normocephalic, normal inspection Eye exam: Present: normal appearance, PERRL, EOMI. Absent: scleral icterus, conjunctival injection, periorbital swelling ENT exam: Present: normal exam, normal oropharynx, mucous membranes moist Neck exam: Present: normal inspection, full ROM. Absent: tenderness, meningismus, lymphadenopathy Respiratory exam: Present: normal lung sounds bilaterally. Absent: respiratory distress, wheezes, rales, rhonchi, stridor Cardiovascular Exam: Present: normal rhythm, tachycardia (Tachycardic 121), normal heart sounds. Absent: systolic murmur, diastolic murmur, rubs, gallop, clicks GI/Abdominal exam: Present: soft, normal bowel sounds. Absent: distended, tenderness, guarding, rebound, rigid Neurological exam: Present: alert, oriented X3, CN II-XII intact Psychiatric exam: Present: flat affect Skin exam: Present: warm, dry, intact, normal color. Absent: rash <Nick Niño M - Last Filed: 06/17/18 03:56> Vital Signs 06/17/18 06/17/18 06/17/18 00:55 02:27 03:00 Temperature 97 F L Pulse Rate 121 H 113 H Respiratory 18 16 16 Rate Blood Pressure 143/81 125/84 113/72 O2 Sat by Pulse 98 98 Oximetry 06/17/18 06/17/18 06/17/18 03:30 04:00 04:30 Temperature Pulse Rate 100 Respiratory 16 16 16 Rate Blood Pressure 108/78 134/91 123/77 O2 Sat by Pulse 100 Oximetry 06/17/18 08:44 Temperature 98.2 F Pulse Rate 115 H Respiratory 18 Rate Blood Pressure 107/73 O2 Sat by Pulse 98 Oximetry EKG Findings - EKG Comments: EKG Findings:: EKG performed at 1:05 sinus tachycardia rate 113 KS 144 QRS 94 QT /QTC 358/491 <Nick Niño - Last Filed: 06/17/18 03:56> Medical Decision Making - Lab Data Result diagrams: 06/17/18 00:48 06/17/18 00:48 <Nick Niño - Last Filed: 06/17/18 03:56> - Lab Data Result diagrams: 06/17/18 00:48 06/17/18 00:48 <Melani Gray - Last Filed: 06/18/18 00:00> - Medical Decision Making 38-year-old female presents emergency department for depression, suicide attempt. Patient didn't take medications to harm herself. Patient had lab work , EKG, urinalysis drug screen. Patient was hydrated emergency Department report control was contacted. Patient was evaluated by EPS case discussed with on-call psychiatrist who recommends inpatient therapy, patient will need to be transferred (Nick Niño) I personally saw and examined the patient. I reviewed and agree with the mid- level provider findings including all diagnostic interpretations and treatment plans as written unless otherwise stated. I was present for maurer portions of any procedures performed. I did complete the clinical cert on the patient patient transferred to [facility] (Melani Gray) - Lab Data Lab Results 06/17/18 06/17/18 06/17/18 Range/Units 00:48 00:48 00:48 WBC 13.2 H (3.8-10.6) k/uL RBC 4.21 (3.80-5.40) m/uL Hgb 13.4 (11.4-16.0) gm/dL Hct 39.4 (34.0-46.0) % MCV 93.7 (80.0-100.0) fL MCH 31.9 (25.0-35.0) pg MCHC 34.0 (31.0-37.0) g/dL RDW 13.3 (11.5-15.5) % Plt Count 353 (150-450) k/uL Neutrophils % 77 % Lymphocytes % 15 % Monocytes % 4 % Eosinophils % 2 % Basophils % 1 % Neutrophils # 10.2 H (1.3-7.7) k/uL Lymphocytes # 2.0 (1.0-4.8) k/uL Monocytes # 0.5 (0-1.0) k/uL Eosinophils # 0.3 (0-0.7) k/uL Basophils # 0.1 (0-0.2) k/uL Sodium 140 (137-145) mmol/L Potassium 3.7 (3.5-5.1) mmol/L Chloride 115 H (98-107) mmol/L Carbon Dioxide 18 L (22-30) mmol/L Anion Gap 7 mmol/L BUN 14 (7-17) mg/dL Creatinine 0.89 (0.52-1.04) mg/dL Est GFR (CKD-EPI)AfAm >90 (>60 ml/min/1.73 sqM) Est GFR (CKD-EPI)NonAf 84 (>60 ml/min/1.73 sqM) Glucose 98 (74-99) mg/dL Calcium 9.5 (8.4-10.2) mg/dL Magnesium 1.8 (1.6-2.3) mg/dL Total Bilirubin 0.4 (0.2-1.3) mg/dL AST 27 (14-36) U/L ALT 33 (9-52) U/L Alkaline Phosphatase 72 (38-126) U/L Total Protein 7.4 (6.3-8.2) g/dL Albumin 4.6 (3.5-5.0) g/dL Lipase 36 (23-300) U/L Urine Color Urine Appearance (Clear) Urine pH (5.0-8.0) Ur Specific Orient (1.001-1.035) Urine Protein (Negative) Urine Glucose (UA) (Negative) Urine Ketones (Negative) Urine Blood (Negative) Urine Nitrite (Negative) Urine Bilirubin (Negative) Urine Urobilinogen (<2.0) mg/dL Ur Leukocyte Esterase (Negative) Urine RBC (0-5) /hpf Urine WBC (0-5) /hpf Ur Squamous Epith Cells (0-4) /hpf Urine Mucus (None) /hpf Urine HCG, Qual (Not Detectd) Salicylates <1.0 mg/dL Urine Opiates Screen (NotDetected) Ur Oxycodone Screen (NotDetected) Urine Methadone Screen (NotDetected) Ur Propoxyphene Screen (NotDetected) Acetaminophen <10.0 ug/mL Ur Barbiturates Screen (NotDetected) U Tricyclic Antidepress (NotDetected) Ur Phencyclidine Scrn (NotDetected) Ur Amphetamines Screen (NotDetected) U Methamphetamines Scrn (NotDetected) U Benzodiazepines Scrn (NotDetected) Urine Cocaine Screen (NotDetected) U Marijuana (THC) Screen (NotDetected) 06/17/18 06/17/18 Range/Units 02:25 02:25 WBC (3.8-10.6) k/uL RBC (3.80-5.40) m/uL Hgb (11.4-16.0) gm/dL Hct (34.0-46.0) % MCV (80.0-100.0) fL MCH (25.0-35.0) pg MCHC (31.0-37.0) g/dL RDW (11.5-15.5) % Plt Count (150-450) k/uL Neutrophils % % Lymphocytes % % Monocytes % % Eosinophils % % Basophils % % Neutrophils # (1.3-7.7) k/uL Lymphocytes # (1.0-4.8) k/uL Monocytes # (0-1.0) k/uL Eosinophils # (0-0.7) k/uL Basophils # (0-0.2) k/uL Sodium (137-145) mmol/L Potassium (3.5-5.1) mmol/L Chloride (98-107) mmol/L Carbon Dioxide (22-30) mmol/L Anion Gap mmol/L BUN (7-17) mg/dL Creatinine (0.52-1.04) mg/dL Est GFR (CKD-EPI)AfAm (>60 ml/min/1.73 sqM) Est GFR (CKD-EPI)NonAf (>60 ml/min/1.73 sqM) Glucose (74-99) mg/dL Calcium (8.4-10.2) mg/dL Magnesium (1.6-2.3) mg/dL Total Bilirubin (0.2-1.3) mg/dL AST (14-36) U/L ALT (9-52) U/L Alkaline Phosphatase (38-126) U/L Total Protein (6.3-8.2) g/dL Albumin (3.5-5.0) g/dL Lipase (23-300) U/L Urine Color Yellow Urine Appearance Cloudy H (Clear) Urine pH 5.5 (5.0-8.0) Ur Specific Orient 1.019 (1.001-1.035) Urine Protein 1+ H (Negative) Urine Glucose (UA) Negative (Negative) Urine Ketones Trace H (Negative) Urine Blood Negative (Negative) Urine Nitrite Negative (Negative) Urine Bilirubin Negative (Negative) Urine Urobilinogen <2.0 (<2.0) mg/dL Ur Leukocyte Esterase Moderate H (Negative) Urine RBC 9 H (0-5) /hpf Urine WBC 7 H (0-5) /hpf Ur Squamous Epith Cells 23 H (0-4) /hpf Urine Mucus Rare H (None) /hpf Urine HCG, Qual Not Detected (Not Detectd) Salicylates mg/dL Urine Opiates Screen Not Detected (NotDetected) Ur Oxycodone Screen Not Detected (NotDetected) Urine Methadone Screen Not Detected (NotDetected) Ur Propoxyphene Screen Not Detected (NotDetected) Acetaminophen ug/mL Ur Barbiturates Screen Not Detected (NotDetected) U Tricyclic Antidepress Detected H (NotDetected) Ur Phencyclidine Scrn Not Detected (NotDetected) Ur Amphetamines Screen Not Detected (NotDetected) U Methamphetamines Scrn Not Detected (NotDetected) U Benzodiazepines Scrn Not Detected (NotDetected) Urine Cocaine Screen Not Detected (NotDetected) U Marijuana (THC) Screen Not Detected (NotDetected) Disposition <Nick Niño M - Last Filed: 06/17/18 03:56> <Melani Gray P - Last Filed: 06/18/18 00:00> Clinical Impression: Depression, Suicidal ideation, Suicide attempt Disposition: TRANSFER TO PSYCH HOSP/UNIT Condition: Stable Referrals: None,Stated [Primary Care Provider] - 1-2 days
[2018-06-17 01:11] LABS: Basophils # (A) 0.1 k/uL (0-0.2); Basophils % (A) 1 %; Eosinophils # (A) 0.3 k/uL (0-0.7); Eosinophils % (A) 2 %; HCT 39.4 % (34.0-46.0); HGB 13.4 gm/dL (11.4-16.0); Lymphocytes % (A) 15 %; MCH 31.9 pg (25.0-35.0); MCV 93.7 fL (80.0-100.0); Mean Platelet Volume 6.5; Monocytes # (A) 0.5 k/uL (0-1.0); Monocytes % (A) 4 %; Neutrophils # (A) 10.2 k/uL (1.3-7.7); Neutrophils % (A) 77 %; Platelet Count 353 k/uL (150-450); RBC 4.21 m/uL (3.80-5.40); RDW 13.3 % (11.5-15.5); WBC 13.2 k/uL (3.8-10.6)
[2018-06-17 01:23] LABS: ALT 33 U/L (9-52); AST 27 U/L (14-36); Acetaminophen <10.0 ug/mL; Albumin 4.6 g/dL (3.5-5.0); Alkaline Phosphatase 72 U/L (38-126); Anion Gap 7 mmol/L; Blood Urea Nitrogen 14 mg/dL (7-17); Calcium 9.5 mg/dL (8.4-10.2); Carbon Dioxide 18 mmol/L (22-30); Chloride 115 mmol/L (98-107); Glucose 98 mg/dL (74-99); Lipase 36 U/L (23-300); Potassium 3.7 mmol/L (3.5-5.1); Salicylate <1.0 mg/dL; Sodium 140 mmol/L (137-145); Total Bilirubin 0.4 mg/dL (0.2-1.3); Total Protein 7.4 g/dL (6.3-8.2)
[2018-06-17 02:45] LABS: Appearance,Urine Cloudy (Clear); Bilirubin,Urine Negative (Negative); Blood,Urine Negative (Negative); Color,Urine Yellow; Glucose,Urine (UA) Negative (Negative); Ketones,Urine Trace (Negative); Leukocyte Esterase,Urine Moderate (Negative); Mucus,Urine Rare /hpf; Nitrite,Urine Negative (Negative); PH, Urine 5.5 (5.0-8.0); Protein,Urine 1+ (Negative); RBC,Urine 9 /hpf (0-5); Specific Gravity,Urine 1.019 (1.001-1.035); Squamous Epithelial Cell,Urine 23 /hpf (0-4); Urobilinogen,Urine <2.0 mg/dL (<2.0); WBC,Urine 7 /hpf (0-5)
[2018-06-17 02:53] LABS: Amphetamine Screen,Urine Not Detected (NotDetected); Barbiturate Screen,Urine Not Detected (NotDetected); Benzodiazepines Screen,Urine Not Detected (NotDetected); Cocaine Screen,Urine Not Detected (NotDetected); Methadone Screen, Urine Not Detected (NotDetected); Opiate Screen,Urine Not Detected (NotDetected); Oxycodone Screen, Urine Not Detected (NotDetected); Phencyclidine Screen,Urine Not Detected (NotDetected); Tricyclic Antidepressant,Urine Detected (NotDetected); Urn Cannabinoid Scrn Not Detected (NotDetected)
[2018-06-17] MEDS ORDERED: LORazepam 1 MG TAB PO STA (03:57)
[2018-06-17 08:45] VITALS: BP 107/73; PULSE 115; RESP 18; TEMP 98.2
== END 2018-06-17 08:44 ==
LOC: EC 00:40
DX: T42.8X2A Poisoning by antiparkinsonism drugs and other central muscle-tone depressants, intentional self-harm, initial encounter (principal); T45.0X2A Poisoning by antiallergic and antiemetic drugs, intentional self-harm, initial encounter; F32.9 Major depressive disorder, single episode, unspecified; F41.9 Anxiety disorder, unspecified; F17.200 Nicotine dependence, unspecified, uncomplicated; Z79.899 Other long term (current) drug therapy
CPT/HCPCS: 36415; 80053; 80306; 81001; 81025; 82075; 83520; 83690; 83735; 85025; 93005; 96360; 96361; 99285

== ENCOUNTER 2018-11-21 23:18 | Emergency (ER) | payer OTHER ==
[2018-11-21] MEDS ORDERED: SODIUM CHLORIDE 0.9% 2,000 ML IV STA (23:35)
[2018-11-22 00:01] LABS: Basophils % (A) 0 %; Eosinophils # (A) 0.1 k/uL (0-0.7); Eosinophils % (A) 2 %; HCT 37.5 % (34.0-46.0); HGB 12.5 gm/dL (11.4-16.0); Lymphocytes # (A) 1.6 k/uL (1.0-4.8); Lymphocytes % (A) 20 %; MCH 32.2 pg (25.0-35.0); MCHC 33.4 g/dL (31.0-37.0); MCV 96.5 fL (80.0-100.0); Mean Platelet Volume 6.2; Monocytes # (A) 0.3 k/uL (0-1.0); Monocytes % (A) 4 %; Neutrophils # (A) 5.7 k/uL (1.3-7.7); Neutrophils % (A) 73 %; Platelet Count 296 k/uL (150-450); RBC 3.89 m/uL (3.80-5.40); RDW 13.1 % (11.5-15.5); WBC 7.8 k/uL (3.8-10.6)
[2018-11-22 00:24] LABS: ALT 35 U/L (9-52); AST 35 U/L (14-36); Acetaminophen <10.0 ug/mL; Albumin 4.6 g/dL (3.5-5.0); Alcohol <10 mg/dL; Alkaline Phosphatase 62 U/L (38-126); Anion Gap 2 mmol/L; Blood Urea Nitrogen 12 mg/dL (7-17); Calcium 9.8 mg/dL (8.4-10.2); Carbon Dioxide 21 mmol/L (22-30); Chloride 115 mmol/L (98-107); Glucose 90 mg/dL (74-99); Potassium 3.7 mmol/L (3.5-5.1); Salicylate <1.0 mg/dL; Sodium 138 mmol/L (137-145); Total Bilirubin 0.4 mg/dL (0.2-1.3); Total Protein 6.9 g/dL (6.3-8.2)
--- NOTE | 2018-11-22 00:27 | ED ---
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 Patient came home from work today with no bizarre behavior no change in mentation. Patient was found in room with a bottle of Benadryl and was not acting appropriately appeared to be intoxicated or high and drugs. Patient had a bottle of Benadryl Were she reports that she did take some pills to help her sleep. Patient found to have multiple pills in her pants pocket. Patient's family also missing Seroquel. Patient denies any intent to harm herself. Denies any illicit drug use denies any alcohol ingestion. - Related Data Home Medications Medication Instructions Recorded Confirmed Sertraline [Zoloft] 200 mg PO DAILY 01/03/18 01/03/18 clonazePAM [KlonoPIN] 1 mg PO HS 01/03/18 01/03/18 lamoTRIgine [LaMICtal] 200 mg PO DAILY 01/03/18 01/03/18 Previous Rx's Medication Instructions Recorded Gabapentin [Neurontin] 300 mg PO TID #42 cap 12/22/17 Melatonin 3 mg PO HS #28 tablet 12/22/17 Allergies Allergy/AdvReac Type Severity Reaction Status Date / Time No Known Allergies Allergy Verified 11/21/18 23:24 Review of Systems ROS Statement: Those systems with pertinent positive or pertinent negative responses have been documented in the HPI. ROS Other: All systems not noted in ROS Statement are negative. Past Medical History Past Medical History: Musculoskeletal Disorder, Osteoarthritis (OA) Additional Past Medical History / Comment(s): depression, anxiety, Pt states that she has had a seizure twice in the past when abusing different substances like cough sryup. History of Any Multi-Drug Resistant Organisms: None Reported Past Surgical History: Section Past Anesthesia/Blood Transfusion Reactions: No Reported Reaction Past Psychological History: Anxiety, Depression Smoking Status: Current every day smoker Past Alcohol Use History: Occasional Past Drug Use History: Marijuana, Prescription Drug Abuse - Past Family History Father Family Medical History: Myocardial Infarction ([place]) Additional Family Medical History / Comment(s): Alcoholism Mother Family Medical History: Deep Vein Thrombosis (DVT), Pneumonia, Respiratory Disorder Additional Family Medical History / Comment(s): Alcoholism Son(s) Family Medical History: No Reported History General Exam Limitations: no limitations General appearance: alert, in no apparent distress, appears intoxicated Head exam: Present: atraumatic, normocephalic, normal inspection Eye exam: Present: normal appearance, PERRL, EOMI. Absent: scleral icterus, conjunctival injection, periorbital swelling ENT exam: Present: normal exam, mucous membranes moist Neck exam: Present: normal inspection, full ROM. Absent: tenderness, me ningismus, lymphadenopathy Respiratory exam: Present: normal lung sounds bilaterally. Absent: respiratory distress, wheezes, rales, rhonchi, stridor Cardiovascular Exam: Present: normal rhythm, tachycardia, normal heart sounds. Absent: systolic murmur, diastolic murmur, rubs, gallop, clicks GI/Abdominal exam: Present: soft, normal bowel sounds. Absent: distended, tenderness, guarding, rebound, rigid Neurological exam: Present: alert, oriented X3, CN II-XII intact Skin exam: Present: warm, dry, intact, normal color. Absent: rash Course Vital Signs 11/21/18 11/22/18 23:19 00:04 Temperature 98.8 F Pulse Rate 129 H 120 H Respiratory 16 16 Rate Blood Pressure 137/78 135/78 O2 Sat by Pulse 100 Oximetry Medical Decision Making - Medical Decision Making 38-year-old female presented from for possible drug ingestion. Patient's positive for TCA, cocaine, methadone and was known to take Benadryl. Patient has been observed for several hours, given IV fluids. Patient symptoms are improved patient has GCS of 15, able to ambulate with no difficulty. Patient be discharged to half way house. - Lab Data Result diagrams: 11/21/18 23:50 11/21/18 23:50 Lab Results 11/21/18 11/21/18 11/21/18 Range/Units 23:50 23:50 23:50 WBC 7.8 (3.8-10.6) k/uL RBC 3.89 (3.80-5.40) m/uL Hgb 12.5 (11.4-16.0) gm/dL Hct 37.5 (34.0-46.0) % MCV 96.5 (80.0-100.0) fL MCH 32.2 (25.0-35.0) pg MCHC 33.4 (31.0-37.0) g/dL RDW 13.1 (11.5-15.5) % Plt Count 296 (150-450) k/uL Neutrophils % 73 % Lymphocytes % 20 % Monocytes % 4 % Eosinophils % 2 % Basophils % 0 % Neutrophils # 5.7 (1.3-7.7) k/uL Lymphocytes # 1.6 (1.0-4.8) k/uL Monocytes # 0.3 (0-1.0) k/uL Eosinophils # 0.1 (0-0.7) k/uL Basophils # 0.0 (0-0.2) k/uL Sodium 138 (137-145) mmol/L Potassium 3.7 (3.5-5.1) mmol/L Chloride 115 H (98-107) mmol/L Carbon Dioxide 21 L (22-30) mmol/L Anion Gap 2 mmol/L BUN 12 (7-17) mg/dL Creatinine 0.74 (0.52-1.04) mg/dL Est GFR (CKD-EPI)AfAm >90 (>60 ml/min/1.73 sqM) Est GFR (CKD-EPI)NonAf >90 (>60 ml/min/1.73 sqM) Glucose 90 (74-99) mg/dL Calcium 9.8 (8.4-10.2) mg/dL Total Bilirubin 0.4 (0.2-1.3) mg/dL AST 35 (14-36) U/L ALT 35 (9-52) U/L Alkaline Phosphatase 62 (38-126) U/L Troponin I <0.012 (0.000-0.034) ng/mL Total Protein 6.9 (6.3-8.2) g/dL Albumin 4.6 (3.5-5.0) g/dL Urine Color Urine Appearance (Clear) Urine pH (5.0-8.0) Ur Specific [place] (1.001-1.035) Urine Protein (Negative) Urine Glucose (UA) (Negative) Urine Ketones (Negative) Urine Blood (Negative) Urine Nitrite (Negative) Urine Bilirubin (Negative) Urine Urobilinogen (<2.0) mg/dL Ur Leukocyte Esterase (Negative) Urine RBC (0-5) /hpf Urine WBC (0-5) /hpf Ur Squamous Epith Cells (0-4) /hpf Urine Bacteria (None) /hpf Urine Mucus (None) /hpf Urine HCG, Qual (Not Detectd) Salicylates <1.0 mg/dL Urine Opiates Screen (NotDetected) Ur Oxycodone Screen (NotDetected) Urine Methadone Screen (NotDetected) Ur Propoxyphene Screen (NotDetected) Acetaminophen <10.0 ug/mL Ur Barbiturates Screen (NotDetected) U Tricyclic Antidepress (NotDetected) Ur Phencyclidine Scrn (NotDetected) Ur Amphetamines Screen (NotDetected) U Methamphetamines Scrn (NotDetected) U Benzodiazepines Scrn (NotDetected) Urine Cocaine Screen (NotDetected) U Marijuana (THC) Screen (NotDetected) Serum Alcohol <10 mg/dL 11/21/18 11/21/18 Range/Units 23:55 23:55 WBC (3.8-10.6) k/uL RBC (3.80-5.40) m/uL Hgb (11.4-16.0) gm/dL Hct (34.0-46.0) % MCV (80.0-100.0) fL MCH (25.0-35.0) pg MCHC (31.0-37.0) g/dL RDW (11.5-15.5) % Plt Count (150-450) k/uL Neutrophils % % Lymphocytes % % Monocytes % % Eosinophils % % Basophils % % Neutrophils # (1.3-7.7) k/uL Lymphocytes # (1.0-4.8) k/uL Monocytes # (0-1.0) k/uL Eosinophils # (0-0.7) k/uL Basophils # (0-0.2) k/uL Sodium (137-145) mmol/L Potassium (3.5-5.1) mmol/L Chloride (98-107) mmol/L Carbon Dioxide (22-30) mmol/L Anion Gap mmol/L BUN (7-17) mg/dL Creatinine (0.52-1.04) mg/dL Est GFR (CKD-EPI)AfAm (>60 ml/min/1.73 sqM) Est GFR (CKD-EPI)NonAf (>60 ml/min/1.73 sqM) Glucose (74-99) mg/dL Calcium (8.4-10.2) mg/dL Total Bilirubin (0.2-1.3) mg/dL AST (14-36) U/L ALT (9-52) U/L Alkaline Phosphatase (38-126) U/L Troponin I (0.000-0.034) ng/mL Total Protein (6.3-8.2) g/dL Albumin (3.5-5.0) g/dL Urine Color Yellow Urine Appearance Clear (Clear) Urine pH 6.0 (5.0-8.0) Ur Specific [place] 1.047 H (1.001-1.035) Urine Protein 1+ H (Negative) Urine Glucose (UA) Negative (Negative) Urine Ketones Negative (Negative) Urine Blood Negative (Negative) Urine Nitrite Negative (Negative) Urine Bilirubin Negative (Negative) Urine Urobilinogen <2.0 (<2.0) mg/dL Ur Leukocyte Esterase Negative (Negative) Urine RBC 1 (0-5) /hpf Urine WBC 1 (0-5) /hpf Ur Squamous Epith Cells 2 (0-4) /hpf Urine Bacteria Rare H (None) /hpf Urine Mucus Rare H (None) /hpf Urine HCG, Qual Not Detected (Not Detectd) Salicylates mg/dL Urine Opiates Screen Not Detected (NotDetected) Ur Oxycodone Screen Not Detected (NotDetected) Urine Methadone Screen Detected H (NotDetected) Ur Propoxyphene Screen Not Detected (NotDetected) Acetaminophen ug/mL Ur Barbiturates Screen Not Detected (NotDetected) U Tricyclic Antidepress Detected H (NotDetected) Ur Phencyclidine Scrn Not Detected (NotDetected) Ur Amphetamines Screen Not Detected (NotDetected) U Methamphetamines Scrn Not Detected (NotDetected) U Benzodiazepines Scrn Not Detected (NotDetected) Urine Cocaine Screen Detected H (NotDetected) U Marijuana (THC) Screen Not Detected (NotDetected) Serum Alcohol mg/dL Disposition Clinical Impression: Polysubstance abuse Disposition: HOME SELF-CARE Condition: Stable Instructions (If sedation given, give patient instructions): Polysubstance Abuse (ED) Additional Instructions: Please return to the Emergency Department if symptoms worsen or any other concerns. Is patient prescribed a controlled substance at d/c from ED?: No Referrals: None,Stated [Primary Care Provider] - 1-2 days Time of Disposition: 02:01
[2018-11-22 00:31] LABS: Appearance,Urine Clear (Clear); Bacteria,Urine Rare /hpf; Bilirubin,Urine Negative (Negative); Blood,Urine Negative (Negative); Color,Urine Yellow; Glucose,Urine (UA) Negative (Negative); Ketones,Urine Negative (Negative); Leukocyte Esterase,Urine Negative (Negative); Mucus,Urine Rare /hpf; Nitrite,Urine Negative (Negative); Protein,Urine 1+ (Negative); RBC,Urine 1 /hpf (0-5); Squamous Epithelial Cell,Urine 2 /hpf (0-4); Urobilinogen,Urine <2.0 mg/dL (<2.0); WBC,Urine 1 /hpf (0-5)
[2018-11-22 00:32] LABS: Specific Gravity,Urine 1.047 (1.001-1.035)
[2018-11-22 00:39] LABS: Phencyclidine Screen,Urine Not Detected (NotDetected)
[2018-11-22 00:40] LABS: Amphetamine Screen,Urine Not Detected (NotDetected); Barbiturate Screen,Urine Not Detected (NotDetected); Benzodiazepines Screen,Urine Not Detected (NotDetected); Cocaine Screen,Urine Detected (NotDetected); Methadone Screen, Urine Detected (NotDetected); Opiate Screen,Urine Not Detected (NotDetected); Oxycodone Screen, Urine Not Detected (NotDetected); Tricyclic Antidepressant,Urine Detected (NotDetected); Urn Cannabinoid Scrn Not Detected (NotDetected)
[2018-11-22 07:44] VITALS: BP 127/78; PULSE 100; RESP 18; TEMP 98.5
== END 2018-11-22 07:53 | disposition home or self-care (01) ==
LOC: EC 23:18
DX: F19.10 Other psychoactive substance abuse, uncomplicated (principal); F32.9 Major depressive disorder, single episode, unspecified; F41.9 Anxiety disorder, unspecified; Z79.899 Other long term (current) drug therapy
CPT/HCPCS: 36415; 93005; 80053; 84484; 85025; 81001; 81025; 80306; 83520; 99284; 96360; 96361; G0480 ×2; 80320; 80329